=== PATIENT | female | born 1980 ===

== ENCOUNTER 2016-12-03 13:09 | Emergency (ER) | payer MEDICAID ==
[2016-12-03 13:09] VITALS: BMI 27.4
[2016-12-03 13:20] VITALS: BP 153/97; PULSE 102; RESP 20; TEMP 98.3; O2SAT 99
--- NOTE | 2016-12-03 13:39 | ED PDOC ---
HPI: Female Pain Time Seen by Provider: 12/03/16 13:28 Chief Complaint (Nursing): Female Genitourinary Chief Complaint (Provider): burn when urinating History Per: Patient History/Exam Limitations: no limitations Additional Complaint(s): patient with 4 days of burning when she urinating and slight pressure in the suprapubic region, (-) fever, radiation of pain to the back or back pain. (-) hx of kidney stone or kidney infections hx of recurrent UTI for many years last was 3 months ago, never needed admission , no urology evaluation. Past Medical History Reviewed: Historical Data, Nursing Documentation, Vital Signs Vital Signs: Last Vital Signs Temp 98.3 F 12/03/16 13:18 Pulse 102 H 12/03/16 13:18 Resp 20 12/03/16 13:18 BP 153/97 H 12/03/16 13:18 Pulse Ox 99 12/03/16 13:18 - Medical History PMH: Anemia, Back Problems, Diabetes (type I ), Fractures (right ankle), HTN, Hypothyroidism Denies: HIV, Chronic Kidney Disease - Surgical History Surgical History: Back Surgery, (3x) - Family History Family History: States: Unknown Family Hx - Living Arrangements Living Arrangements: With Family - Social History Current smoker - smoking cessation education provided: No Alcohol: Occasional Drugs: Denies - Home Medications Home Medications: Ambulatory Orders Medication Instructions Recorded Insulin Lispro [humALOG] 20 units SC BID 07/16/16 Levothyroxine Sodium [Synthroid] 1 tab PO QAM 07/16/16 MetFORMIN [glucoPHAGE] 1 tab PO TID 07/16/16 amLODIPine [Norvasc] 2 tab PO DAILY 07/16/16 Ciprofloxacin [Cipro] 500 mg PO BID #14 tab 08/17/16 Fluconazole [Diflucan] 150 mg PO ONCE #1 tab 08/31/16 Fluconazole [Diflucan] 150 mg PO ONCE #1 tab 09/30/16 Metronidazole [Metrogel] 60 gm VAG HS #1 packet 09/30/16 Famotidine [Pepcid] 20 mg PO DAILY #30 tab 10/27/16 Fluconazole [Diflucan] 150 mg PO ONCE #1 tab 10/27/16 Nitrofurantoin Macrocrystals 100 mg PO BID #14 cap 10/27/16 [Macrobid] Nitrofurantoin Macrocrystals 100 mg PO BID #14 cap 12/03/16 [Macrobid] Phenazopyridine [Phenazopyridine 200 mg PO TID #6 tab 12/03/16 HCl] - Allergies Allergies/Adverse Reactions: Allergies Allergy/AdvReac Type Severity Reaction Status Date / Time No Known Allergies Allergy Verified 12/03/16 13:17 Review of Systems ROS Statement: Except As Marked, All Systems Reviewed And Found Negative Constitutional: Negative for: Fever, Chills Cardiovascular: Negative for: Chest Pain Respiratory: Negative for: Shortness of Breath Gastrointestinal: Negative for: Nausea, Vomiting, Diarrhea Genitourinary Female: Positive for: Hematuria. Negative for: Vaginal Discharge , Vaginal Bleeding Skin: Negative for: Rash Neurological: Negative for: Headache, Dizziness Physical Exam - Reviewed Nursing Documentation Reviewed: Yes Vital Signs Reviewed: Yes - Physical Exam Appears: Positive for: Well, No Acute Distress Head Exam: Positive for: NORMAL INSPECTION Skin: Positive for: Normal Color Neck: Positive for: Normal, Painless ROM Cardiovascular/Chest: Positive for: Regular Rate, Rhythm Respiratory: Positive for: Normal Breath Sounds Gastrointestinal/Abdominal: Positive for: Normal Exam, Soft. Negative for: Tenderness Back: Positive for: Normal Inspection. Negative for: L CVA Tenderness, R CVA Tenderness, Vertebral Tenderness Extremity: Positive for: Normal ROM, Capillary Refill (normal ). Negative for: Tenderness Lymphatic: Positive for: Normal Exam Neurologic/Psych: Positive for: Alert, Oriented, Gait (normal ). Negative for: Motor/Sensory Deficits - ECG O2 Sat by Pulse Oximetry: 99 Pulse Ox Interpretation: Normal Medical Decision Making Medical Decision Makin36 y/o female with UTI symptoms - urinalysis no signs of kidney infection- no CVA tenderness, no fevers, no hx of stones chart reviewed from prior visit 10/2016 and 08/2016, similar symptoms at that time. UA reviewed from visits, UC multiple species normal US 10/2016 she appears well, no fever, her last checked her sugar 126 no CVA tenderness. discussed recurrent UTIs/UTI symptoms and need for urology without fail. discussed need to make sure she controls her sugar well which will decrease risk of recurrent infections. discussed UC was sent. she understands the need for follow up and will arrange it with PMD. Disposition - Clinical Impression Clinical Impression: Dysuria - Patient ED Disposition Is Patient to be Admitted: No Counseled Patient/Family Regarding: Studies Performed, Diagnosis, Need For Followup, Rx Given - Disposition Referrals: Yahir Zaragoza MD [Medical Doctor] - Disposition: Routine/Home Disposition Time: 14:22 Condition: STABLE Additional Instructions: follow up with urology and your primary care doctor for chronic/recurrent urinary complaints return for fevers, pain or any new concerns. Prescriptions: Nitrofurantoin Macrocrystals [Macrobid] 100 mg PO BID #14 cap Phenazopyridine [Phenazopyridine HCl] 200 mg PO TID #6 tab Instructions: Dysuria (ED)
[2016-12-03 14:04] LABS: RBC URINE 8 /hpf (0-3); URINE BACTERIA OCC (<OCC); URINE BILIRUBIN NEGATIVE (NEGATIVE); URINE BLOOD SMALL (NEGATIVE); URINE COLOR YELLOW (YELLOW); URINE GLUCOSE (UA) >=500 mg/dL (Normal); URINE KETONE NEGATIVE (NEGATIVE); URINE LEUKOCYTE ESTERASE NEG Leu/uL (Negative); URINE PROTEIN >=500 mg/dL (NEGATIVE); URINE UROBILINOGEN 0.2-1.0 mg/dL (0.2-1.0); WBC URINE 10 /hpf (0-5)
== END 2016-12-03 14:49 | disposition home or self-care (01) ==
LOC: H.ER 13:09
DX: R50.9 Fever, unspecified (principal)

== ENCOUNTER 2016-12-13 18:54 | Emergency (ER) | payer MEDICAID ==
[2016-12-13 18:54] VITALS: BMI 27.4
[2016-12-13 19:25] VITALS: BP 150/84; PULSE 112; RESP 18; TEMP 98.7; O2SAT 100
--- NOTE | 2016-12-13 20:08 | ED PDOC ---
HPI: Female Pain Time Seen by Provider: 12/13/16 19:45 Chief Complaint (Nursing): Female Genitourinary Chief Complaint (Provider): Dysuria History Per: Patient History/Exam Limitations: no limitations Onset/Duration Of Symptoms: Days (x10) Current Symptoms Are (Timing): Still Present Severity: Moderate Quality Of Discomfort: Burning, Other (itching) Associated Symptoms: denies: Fever, Other (no abd pain or vaginal discharge) Additional Complaint(s): Sara Lane is a 36 year old female, with a past medical history of anemia, HTN, and diabetes, presenting to the emergency department complaining of moderate dysuria x10 days. Pain is described as a burning/itching sensation that does not radiate elsewhere. The patient denies a fever, abdominal pain and vaginal discharge. She was seen ten days ago for the same issue and prescribed Macrobid, however, her symptoms are persistent despite taking antibiotics. PMD: non-specified Past Medical History Reviewed: Historical Data, Nursing Documentation, Vital Signs Vital Signs: Last Vital Signs Temp 98.7 F 12/13/16 19:22 Pulse 112 H 12/13/16 19:22 Resp 18 12/13/16 19:22 BP 150/84 12/13/16 19:22 Pulse Ox 100 12/13/16 19:22 - Medical History PMH: Anemia, Back Problems (herniated, bulging L4-L6 discs), Diabetes (type I), Fractures (right ankle), HTN, Hypothyroidism Denies: HIV, Chronic Kidney Disease - Surgical History Surgical History: Back Surgery, (x3) Other surgeries: right ankle repair w/ hardware - Family History Family History: States: Unknown Family Hx - Social History Current smoker - smoking cessation education provided: No Ex-Smoker (has not smoked in the last 12 months): No Alcohol: None Drugs: Denies - Home Medications Home Medications: Ambulatory Orders Medication Instructions Recorded Insulin Lispro [humALOG] 20 units SC BID 07/16/16 Levothyroxine Sodium [Synthroid] 1 tab PO QAM 07/16/16 MetFORMIN [glucoPHAGE] 1 tab PO TID 07/16/16 amLODIPine [Norvasc] 2 tab PO DAILY 07/16/16 Ciprofloxacin [Cipro] 500 mg PO BID #14 tab 08/17/16 Fluconazole [Diflucan] 150 mg PO ONCE #1 tab 08/31/16 Fluconazole [Diflucan] 150 mg PO ONCE #1 tab 09/30/16 Metronidazole [Metrogel] 60 gm VAG HS #1 packet 09/30/16 Famotidine [Pepcid] 20 mg PO DAILY #30 tab 10/27/16 Fluconazole [Diflucan] 150 mg PO ONCE #1 tab 10/27/16 Nitrofurantoin Macrocrystals 100 mg PO BID #14 cap 10/27/16 [Macrobid] Nitrofurantoin Macrocrystals 100 mg PO BID #14 cap 12/03/16 [Macrobid] Phenazopyridine [Phenazopyridine 200 mg PO TID #6 tab 12/03/16 HCl] Ciprofloxacin HCl [Cipro] 500 mg PO BID #20 tab 12/13/16 - Allergies Allergies/Adverse Reactions: Allergies Allergy/AdvReac Type Severity Reaction Status Date / Time No Known Allergies Allergy Verified 12/03/16 13:17 Review of Systems Constitutional: Negative for: Fever Gastrointestinal: Negative for: Abdominal Pain Genitourinary Female: Positive for: Dysuria. Negative for: Vaginal Discharge Physical Exam - Reviewed Nursing Documentation Reviewed: Yes Vital Signs Reviewed: Yes - Physical Exam Appears: Positive for: Non-toxic, No Acute Distress Head Exam: Positive for: ATRAUMATIC, NORMOCEPHALIC Skin: Positive for: Normal Color, Warm, Dry Gastrointestinal/Abdominal: Positive for: Normal Exam, Soft. Negative for: Tenderness Pelvic Exam: Positive for: External Exam Normal, No Masses, Other (non-tender). Negative for: Blood, Discharge Back: Positive for: Normal Inspection. Negative for: L CVA Tenderness, R CVA Tenderness Neurologic/Psych: Positive for: Alert, Oriented - ECG O2 Sat by Pulse Oximetry: 100 Pulse Ox Interpretation: Normal Medical Decision Making Medical Decision Makin:45 Initial Impression: dysuria Initial Plan: * Udip * Upreg * UA * Chlamydia/GC RNA * Urine Culture * Reevaluation Urine culture from previous emergency department reviewed, (+) Serratia marcescens. Resistant to Macrobid. Sensitive to Cipro, will provide prescription. 20:20 Upon provider reevaluation patient is medically stable and requires no further treatment in the ED at this time. Patient will be discharged home with Rx for Cipro. Counseling was provided and all questions were answered regarding diagnosis and need for follow up with the referred clinic. There is agreement to discharge plan. Return if symptoms persist or worsen. Clinical Impression: UTI Scribe Attestation: Documented by Siddharth Keyes training under Ariella Hurley, acting as a scribe for Earl lAlen MD. Provider Scribe Attestation: All medical record entries made by the Scribe were at my direction and personally dictated by me. I have reviewed the chart and agree that the record accurately reflects my personal performance of the history, physical exam, medical decision making, and the department course for this patient. I have also personally directed, reviewed, and agree with the discharge instructions and disposition. Disposition - Clinical Impression Clinical Impression: Urinary tract infection - Patient ED Disposition Is Patient to be Admitted: No Counseled Patient/Family Regarding: Studies Performed, Diagnosis, Need For Followup, Rx Given - Disposition Referrals: [facility] [Outside] Disposition: Routine/Home Disposition Time: 20:20 Condition: STABLE Prescriptions: Ciprofloxacin HCl [Cipro] 500 mg PO BID #20 tab Instructions: Urinary Tract Infection in Women (ED)
[2016-12-13 21:17] LABS: RBC URINE 5 /hpf (0-3); URINE BACTERIA OCC (<OCC); URINE BILIRUBIN NEGATIVE (NEGATIVE); URINE BLOOD SMALL (NEGATIVE); URINE COLOR STRAW (YELLOW); URINE GLUCOSE (UA) >=500 mg/dL (Normal); URINE KETONE NEGATIVE (NEGATIVE); URINE LEUKOCYTE ESTERASE NEG Leu/uL (Negative); URINE PROTEIN >=500 mg/dL (NEGATIVE); URINE UROBILINOGEN 0.2-1.0 mg/dL (0.2-1.0); WBC URINE 8 /hpf (0-5)
== END 2016-12-13 20:30 | disposition home or self-care (01) ==
LOC: H.ER 18:54
DX: N39.0 Urinary tract infection, site not specified (principal); R30.0 Dysuria; E03.9 Hypothyroidism, unspecified; I10 Essential (primary) hypertension; Z79.4 Long term (current) use of insulin; E11.9 Type 2 diabetes mellitus without complications

== ENCOUNTER 2016-12-24 23:06 | Emergency (ER) | payer MEDICAID ==
[2016-12-24 23:07] VITALS: BMI 27.4
[2016-12-24 23:16] VITALS: BP 151/101; PULSE 116; TEMP 97.8; O2SAT 98
--- NOTE | 2016-12-24 23:59 | ED PDOC ---
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 She also reports B/l leg swelling for the last 3 days and palpitation. She denies fever, cough, hemoptysis, pyrosis, N/V/D, abdominal pain , recent travel,trauma, Hx/o DVT, orthopnea, polyuria, polidypsia. Patient reports "she has endometriosis by MRI" and had a blood transfusion back in april last year and also reports she has been taking ciprofloxacin 500 mg bid x 7 days for UTI, last dose today. (Brayan Rodriguez) Past Medical History - Medical History PMH: Anemia, Back Problems (herniated, bulging L4-L6 discs), Diabetes (type I), Fractures (right ankle), HTN, Hypothyroidism Denies: HIV, Chronic Kidney Disease - Surgical History Surgical History: Back Surgery, (x3 and tubal ligation ) - Family History Family History: States: Unknown Family Hx - Social History Alcohol: None Drugs: Denies <Brayan Rodriguez - Last Filed: 12/25/16 03:28> <Jefferson Leroy - Last Filed: 12/25/16 05:47> Vital Signs: Last Vital Signs Temp 97.8 F 12/24/16 23:14 Pulse 116 H 12/24/16 23:14 Resp 19 12/25/16 01:40 BP 151/101 H 12/24/16 23:14 Pulse Ox 98 12/25/16 03:28 - Home Medications Home Medications: Ambulatory Orders Medication Instructions Recorded Insulin Lispro [humALOG] 20 units SC BID 07/16/16 Levothyroxine Sodium [Synthroid] 1 tab PO QAM 07/16/16 MetFORMIN [glucoPHAGE] 1 tab PO TID 07/16/16 amLODIPine [Norvasc] 2 tab PO DAILY 07/16/16 Ciprofloxacin [Cipro] 500 mg PO BID #14 tab 08/17/16 Fluconazole [Diflucan] 150 mg PO ONCE #1 tab 08/31/16 Fluconazole [Diflucan] 150 mg PO ONCE #1 tab 09/30/16 Metronidazole [Metrogel] 60 gm VAG HS #1 packet 09/30/16 Famotidine [Pepcid] 20 mg PO DAILY #30 tab 10/27/16 Fluconazole [Diflucan] 150 mg PO ONCE #1 tab 10/27/16 Nitrofurantoin Macrocrystals 100 mg PO BID #14 cap 10/27/16 [Macrobid] Nitrofurantoin Macrocrystals 100 mg PO BID #14 cap 12/03/16 [Macrobid] Phenazopyridine [Phenazopyridine 200 mg PO TID #6 tab 12/03/16 HCl] Ciprofloxacin HCl [Cipro] 500 mg PO BID #20 tab 12/13/16 - Allergies Allergies/Adverse Reactions: Allergies Allergy/AdvReac Type Severity Reaction Status Date / Time No Known Allergies Allergy Verified 12/03/16 13:17 Curb-65 Severity Score - CURB-65 Severity Score Confusion: No Bun >19mg/dl (>7mmol/L): No Respiratory Rate greater than/equal to 30: No Systolic BP <90 or Diastolic BP less than/equal 60mmHg: No Age >64: No Curb-65 Score: 0 Percentage 30-day mortality: 0.6% <Brayan Rodriguez - Last Filed: 12/25/16 03:28> Wells Criteria for PE - Wells Criteria for Pulmonary Embolism Heart Rate >100: Yes Immobilization at least 3 days;Surgery previous 4 weeks: No Previous, objectively diagnosed PE or DVT: No Hemoptysis: No Malignancy w/treatment within 6 months, or palliative: No Total Score: 1.5 <Brayan Rodriguez - Last Filed: 12/25/16 03:28> Review of Systems Cardiovascular: Positive for: Chest Pain, Palpitations, Edema Respiratory: Positive for: SOB with Exertion Gastrointestinal: Negative for: Nausea, Vomiting, Abdominal Pain Genitourinary Female: Negative for: Dysuria Neurological: Negative for: Confusion, Dizziness Psych: Negative for: Anxiety <Brayan Rodriguez - Last Filed: 12/25/16 03:28> Physical Exam - Physical Exam Appears: Positive for: Non-toxic, No Acute Distress Head Exam: Positive for: ATRAUMATIC, NORMOCEPHALIC Skin: Positive for: Normal Color Eye Exam: Positive for: Normal appearance Cardiovascular/Chest: Positive for: Tachycardia Respiratory: Positive for: Normal Breath Sounds. Negative for: Crackles, Rales , Rhonchi Gastrointestinal/Abdominal: Positive for: Normal Exam, Bowel Sounds, Soft. Negative for: Tenderness, Distended, Rebound Extremity: Positive for: Pedal Edema (B/L pedal edema 2+ 2/3 distal ) Neurologic/Psych: Positive for: Alert, Oriented <Brayan Rodriguez - Last Filed: 12/25/16 03:28> - Laboratory Results Result Diagrams: 12/24/16 00:44 12/24/16 00:44 - ECG O2 Sat by Pulse Oximetry: 98 <Brayan Rodriguez - Last Filed: 12/25/16 03:28> - Laboratory Results Result Diagrams: 12/24/16 00:44 12/24/16 00:44 <Jefferson Leroy Y - Last Filed: 12/25/16 05:47> Medical Decision Making <Brayan Rodriguez - Last Filed: 12/25/16 03:28> <Jefferson Leroy - Last Filed: 12/25/16 05:47> Medical Decision Makin yo , f, PMhx/o type 1 DM, HTN, Hypothyroidism, Anemia, presents to ER c/o SOB on exertion started 7 days ago, associated with chest pain, pedal edema , palpitation Impression SOB. To r/o CHF, Anemia, PE. Plan CBC, CMP CXR EKg troponin D dimer, pro BMP 1: 15am Hgb: 7,5 Bun/Cr 33/1.9 Glucose: 507 mg/dl troponin neg ProBNP 2910 Patient was informed about abnormal lab results and need for admission but she reports that she has to work tomorrow and will come back tomorrow night. will sign AMA (Brayan Rodriguez) Disposition - Disposition Disposition Time: 02:52 <Brayan Rodriguez - Last Filed: 12/25/16 03:28> <Jefferson Leroy - Last Filed: 12/25/16 05:47> - Clinical Impression Clinical Impression: Chronic congestive heart failure, Hyperglycemia, Left against medical advice - Disposition Referrals: Lenny Locke MD [Primary Care Provider] - Condition: SERIOUS Additional Instructions: follow up with your primary doctor as soon as possible. return to the ED with any worsening or concerning symptoms immediately. Instructions: Heart Failure (ED), Against Medical Advice (ED), Diabetic Hyperglycemia (ED)
[2016-12-25 00:47] LABS: BASO # 0.1 K/uL (0.0-0.2); BASO % 1.4 % (0.0-2.0); EOS # 0.2 K/uL (0.0-0.7); EOS % 2.3 % (0.0-4.0); HEMATOCRIT 24.3 % (34.0-47.0); LYMPH # 2.7 K/uL (1.0-4.3); LYMPH % 29.2 % (20.0-40.0); MEAN CELL VOLUME 72.2 fl (81.0-99.0); MEAN CORPUSCULAR HEMOGLOBIN 22.2 pg (27.0-31.0); MEAN CORPUSCULAR HGB CONC 30.7 g/dL (33.0-37.0); MEAN PLATELET VOLUME 7.7 fl (7.2-11.7); MONO # 0.4 K/uL (0.0-0.8); MONO % 4.6 % (0.0-10.0); NEUT # 5.8 K/uL (1.8-7.0); NEUT % 62.5 % (50.0-75.0); RED CELL DISTRIBUTION WIDTH 15.3 % (11.5-14.5); WHITE BLOOD COUNT 9.2 K/uL (4.8-10.8)
[2016-12-25 00:58] LABS: ALB/GLOB RATIO 0.7 (1.0-2.1); ALKALINE PHOSPHATASE 160 U/L (38-126); ALT/SGPT 16 U/L (9-52); AST/SGOT 20 U/L (14-36); BILIRUBIN,TOTAL 0.2 mg/dl (0.2-1.3); BLOOD UREA NITROGEN 33 mg/dl (7-17); CALCIUM 8.4 mg/dL (8.4-10.2); CARBON DIOXIDE 23 mmol/L (22-30); CHLORIDE 110 mmol/L (98-107); GFR AFRICAN-AMERICAN 37; POTASSIUM 4.2 MMOL/L (3.6-5.0); SODIUM 141 mmol/l (132-148)
[2016-12-25 01:00] LABS: GLUCOSE,RANDOM 507 mg/dL (65-105)
[2016-12-25] MEDS ORDERED: Sodium Chloride 0.9% 1,000 ML IV STA ×2 (01:01→02:17)
[2016-12-25] MEDS ORDERED: Insulin Regular 100 units/ml SC STA (01:02)
[2016-12-25] MEDS ORDERED: Insulin Regular 100 units/ml ONE (01:06)
[2016-12-25 01:41] VITALS: RESP 19
--- NOTE | 2016-12-26 10:00 | RAD ---
HISTORY: cp COMPARISON: No prior. TECHNIQUE: Chest PA and lateral FINDINGS: LUNGS: Bilateral atelectasis and/or infiltrates. In addition, there are increased/ coarsened interstitial markings ; rule out underlying interstitial infiltrate component however concomitant underlying sequela of reactive/ inflammatory airway disease and or viral illness not excluded PLEURA: No significant pleural effusion identified. No pneumothorax apparent. CARDIOVASCULAR: Normal. OSSEOUS STRUCTURES: No significant abnormalities. VISUALIZED UPPER ABDOMEN: Normal. OTHER FINDINGS: None. IMPRESSION: Bilateral atelectasis and/or infiltrates. In addition, there are increased/ coarsened interstitial markings ; rule out underlying interstitial infiltrate component however concomitant underlying sequela of reactive/ inflammatory airway disease and or viral illness not excluded No that this report was placed in PA review folder followup
== END 2016-12-25 02:51 | disposition left against medical advice (07) ==
LOC: H.ER 23:06
DX: I50.9 Heart failure, unspecified (principal); J44.9 Chronic obstructive pulmonary disease, unspecified; E03.9 Hypothyroidism, unspecified; E11.65 Type 2 diabetes mellitus with hyperglycemia; I10 Essential (primary) hypertension; Z79.4 Long term (current) use of insulin

== ENCOUNTER 2017-01-02 18:07 | Inpatient (IN) | payer MEDICAID ==
[2017-01-02 18:07] VITALS: BMI 27.4
[2017-01-02] MEDS ORDERED: Sodium Chloride 0.9% 1,000 ML IV STA (18:44)
[2017-01-02 19:17] LABS: BASO # 0.1 K/uL (0.0-0.2); BASO % 1.4 % (0.0-2.0); EOS # 0.2 K/uL (0.0-0.7); EOS % 2.6 % (0.0-4.0); HEMATOCRIT 21.8 % (34.0-47.0); LYMPH # 1.7 K/uL (1.0-4.3); LYMPH % 20.7 % (20.0-40.0); MEAN CORPUSCULAR HEMOGLOBIN 22.2 pg (27.0-31.0); MEAN CORPUSCULAR HGB CONC 30.8 g/dL (33.0-37.0); MEAN PLATELET VOLUME 7.5 fl (7.2-11.7); MONO # 0.5 K/uL (0.0-0.8); MONO % 5.7 % (0.0-10.0); NEUT # 5.8 K/uL (1.8-7.0); NEUT % 69.6 % (50.0-75.0); RED CELL DISTRIBUTION WIDTH 15.4 % (11.5-14.5); WHITE BLOOD COUNT 8.3 K/uL (4.8-10.8)
[2017-01-02 19:28] LABS: ALKALINE PHOSPHATASE 146 U/L (38-126); ALT/SGPT 23 U/L (9-52); AST/SGOT 17 U/L (14-36); BILIRUBIN,TOTAL 0.3 mg/dl (0.2-1.3); BLOOD UREA NITROGEN 23 mg/dl (7-17); CALCIUM 8.6 mg/dL (8.4-10.2); CARBON DIOXIDE 21 mmol/L (22-30); CHLORIDE 102 mmol/L (98-107); GFR AFRICAN-AMERICAN 42; POTASSIUM 4.1 MMOL/L (3.6-5.0); SODIUM 137 mmol/l (132-148); TOTAL PROTEIN 6.3 G/DL (6.3-8.2)
[2017-01-02 19:31] LABS: ALB/GLOB RATIO 0.8 (1.0-2.1)
[2017-01-02 19:35] LABS: GLUCOSE,RANDOM 434 mg/dL (65-105)
[2017-01-02 19:36] LABS: PARTIAL THROMBOPLASTIN TIME 22.3 SECONDS (23.3-32.5)
[2017-01-02 19:58] LABS: THYROID STIMULATING HORMONE 0.27 mIU/ML (0.46-4.68)
--- NOTE | 2017-01-02 20:18 | ED PDOC ---
HPI: Chest Pain Time Seen by Provider: 01/02/17 18:25 Chief Complaint (Nursing): Chest Pain Chief Complaint (Provider): Chest Pain History Per: Patient History/Exam Limitations: no limitations Onset/Duration Of Symptoms: Days (x1) Current Symptoms Are (Timing): Gone Now (only present w/exertion) Associated Symptoms: Dyspnea (exertional only) Additional Complaint(s): Sara Lane is a 36 year old female, with a past medical history inclusive of HTN, type I diabetes and anemia, who presents to the ED on 01/02/17, with complaints of chest pain and exertional dyspnea, experienced x1 day and over the past couple of weeks respectively. Pain, localized midsternally and described as burning, is also only present with exertion and relieved with rest. Patient states that she was evaluated within the ED on 12/24/16 for similar complaints, at which time it was recommended that she be admitted for further treatment of kidney problems and anemia. Patient had signed herself out AMA as she had work the next day, but had followed up with her PMD as instructed upon disposition with subsequent referral to a staff developer. Patient was evaluated by this neprhologist yesterday, who had recommended that she come to the ED for further treatment. Though she is experiencing a minimal cough, she denies fever or palpitations. PMD: [facility] Dental Hygiene Professor: Dr. Dejesus Past Medical History Reviewed: Historical Data, Nursing Documentation, Vital Signs Vital Signs: Last Vital Signs Temp 98.5 F 01/04/17 12:58 Pulse 89 01/04/17 12:58 Resp 20 01/04/17 12:58 BP 158/85 H 01/04/17 12:58 Pulse Ox 98 01/04/17 12:58 - Medical History PMH: Anemia, Back Problems (herniated, bulging L4-L6 discs), Diabetes (type I), Fractures (right ankle), HTN, Hypothyroidism Denies: HIV, Chronic Kidney Disease - Surgical History Surgical History: Back Surgery, (x3 and tubal ligation ) Other surgeries: ankle surgery (plate/screw placement s/p fx) - Family History Family History: States: Unknown Family Hx - Home Medications Home Medications: Ambulatory Orders Medication Instructions Recorded Atorvastatin [Lipitor] 80 mg PO HS 01/02/17 Ergocalciferol (Vitamin D2) 50,000 unit PO WE 01/02/17 [Vitamin D2] Insulin Glargine, Recombina 17 unit SC HS 01/02/17 [Lantus] Insulin Lispro [humALOG] 20 unit SC ACTID 01/02/17 Levothyroxine Sodium [Synthroid] 325 mcg PO DAILY 01/02/17 MetFORMIN [glucoPHAGE] 1,000 mg PO BID 01/02/17 Metoprolol Succinate 100 mg PO DAILY 01/02/17 amLODIPine [Norvasc] 10 mg PO DAILY 01/02/17 hydroCHLOROthiazide [Hydrodiuril] 25 mg PO DAILY 01/02/17 Ferrous Sulfate 325 mg PO BID #30 tablet 01/04/17 Furosemide [Lasix] 40 mg PO DAILY #30 tab 01/04/17 GlipiZIDE SR [Glucotrol XL] 10 mg PO BRK #30 tab 01/04/17 Lisinopril [Zestril] 40 mg PO DAILY #30 tab 01/04/17 Miconazole 2% Vaginal [Monistat 7 1 applic VAG HS #1 tube 01/04/17 Vaginal Cream] Pantoprazole [Protonix EC Tab] 40 mg PO DAILY #14 ect 01/04/17 - Allergies Allergies/Adverse Reactions: Allergies Allergy/AdvReac Type Severity Reaction Status Date / Time No Known Allergies Allergy Verified 01/02/17 18:34 Review of Systems ROS Statement: Except As Marked, All Systems Reviewed And Found Negative Constitutional: Negative for: Fever Cardiovascular: Positive for: Chest Pain (exertional, midsternal burning). Negative for: Palpitations Respiratory: Positive for: SOB with Exertion Physical Exam - Reviewed Nursing Documentation Reviewed: Yes Vital Signs Reviewed: Yes - Physical Exam Appears: Positive for: Non-toxic, No Acute Distress Head Exam: Positive for: ATRAUMATIC, NORMOCEPHALIC Skin: Positive for: Warm, Dry, Pallor Eye Exam: Positive for: Normal appearance, PERRL ENT: Positive for: Normal ENT Inspection Cardiovascular/Chest: Positive for: Tachycardia (regular rhythm). Negative for : Edema, Murmur Respiratory: Positive for: Normal Breath Sounds. Negative for: Respiratory Distress Gastrointestinal/Abdominal: Positive for: Normal Exam, Soft. Negative for: Tenderness Back: Positive for: Normal Inspection Extremity: Positive for: Normal ROM (moving all extremities well). Negative for : Swelling Neurologic/Psych: Positive for: Alert, Oriented - Laboratory Results Result Diagrams: 01/04/17 04:10 01/04/17 08:00 - ECG O2 Sat by Pulse Oximetry: 100 (RA) Pulse Ox Interpretation: Normal Medical Decision Making Medical Decision Makin:25 Initial Impression: anemia, kidney failure, chest pain Initial Plan: * ABO/Rh Type * Blood Type/Screen * CXR * Labs * ProBNP * TSH * D-Dimer * PTT * PT * Glucose/Blood/POC * Upreg * Udip * Urinalysis * IV NS 1000ml at 1000mls/hr * Reevaluation 19:37 Labs reviewed, patient is anemic with a hemoglobin level of 6.7. Patient will be admitted for transfusion and has given written consent. Ordered Crossmatch and transfusion of 2 units. 20:23 Patient's blood pressure is notably elevated within the ED, admits to not taking blood pressure medications today. Ordered administration of metoprolol tartrate 100mg PO as well as norvasc 10mg PO. 20:48 Blood glucose is 434, ordered administration of Insulin HR 8 units IV. 21:00 Labs also demonstrate elevated D-Dimer. Unable to order CT w/contrast secondary to patient's elevated creatinine (1.7), will order Duplex LE Vein bilat as well as VQ scan for morning. Will page Dr. Salinas (Medical Service) for admission. 21:[address] Salinas, who will obtain both hemonc and nephrology consults. He has been notified of ordered VQ scan and recommends that patient be given Lasix. Patient will be admitted under his service to Telemetry. Plan has been discussed with patient, who is in agreement. 21:30 Patient has refused rectal exam. She does report currently being on her menses and that, though she usually bleeds heavily on the 2nd day of her cycle (using an estimated 6 pads), she had not been menstruating the last time she required transfusion. Scribe Attestation: Documented by Ariella Hurley, acting as a scribe for Esthela Arshad MD. Provider Scribe Attestation: All medical record entries made by the Scribe were at my direction and personally dictated by me. I have reviewed the chart and agree that the record accurately reflects my personal performance of the history, physical exam, medical decision making, and the department course for this patient. I have also personally directed, reviewed, and agree with the discharge instructions and disposition. Disposition - Clinical Impression Clinical Impression: Symptomatic anemia, Chest pain, Renal insufficiency, Uncontrolled diabetes mellitus - Patient ED Disposition Is Patient to be Admitted: Yes - Disposition Disposition Time: 21:18 Condition: STABLE - Pt Status Changed To: Hospital Disposition Of: Inpatient - Admit Certification Admit to Inpatient:: After my assessment, the patient will require hospitalization for at least two midnights. This is because of the severity of symptoms shown, intensity of services needed, and/or the medical risk in this patient being treated as an outpatient. - POA Present On Arrival: Poor Glycemic Control
[2017-01-02] MEDS ORDERED: Insulin Regular 100 units/ml ONE (20:45)
[2017-01-02] MEDS ORDERED: Insulin Regular 100 units/ml IV STA (20:48)
[2017-01-02 21:15] LABS: RBC URINE 73 /hpf (0-3); URINE BACTERIA RARE (<OCC); URINE BILIRUBIN NEGATIVE (NEGATIVE); URINE BLOOD LARGE (NEGATIVE); URINE COLOR YELLOW (YELLOW); URINE GLUCOSE (UA) >=500 mg/dL (Normal); URINE KETONE NEGATIVE (NEGATIVE); URINE LEUKOCYTE ESTERASE NEG Leu/uL (Negative); URINE PROTEIN >=500 mg/dL (NEGATIVE); URINE UROBILINOGEN 0.2-1.0 mg/dL (0.2-1.0); WBC URINE 3 /hpf (0-5)
[2017-01-02 22:13] LABS: IRON 17 ug/dL (37-170)
[2017-01-03] MEDS ORDERED: Ergocalciferol 50,000 Intl Units Cap PO SCH ×2 (00:15→09:00)
[2017-01-03] MEDS: Insulin Detemir 100 Units/ml Inj SC SCH ×2 (00:39→22:09)
[2017-01-03] MEDS ORDERED: Pneumococcal 23-Valent Vaccine IM ONE (06:00)
[2017-01-03] MEDS: Levothyroxine 150 MCG TAB PO SCH (06:17)
[2017-01-03] MEDS ORDERED: Levothyroxine 100 MCG TAB PO SCH (06:30)
[2017-01-03] MEDS ORDERED: Levothyroxine 25 MCG TAB PO SCH (06:30)
[2017-01-03 07:50] LABS: ALB/GLOB RATIO 0.7 (1.0-2.1); BILIRUBIN,TOTAL 0.3 mg/dl (0.2-1.3); CALCIUM 8.4 mg/dL (8.4-10.2); POTASSIUM 3.6 MMOL/L (3.6-5.0); TOTAL PROTEIN 5.9 G/DL (6.3-8.2)
--- NOTE | 2017-01-03 08:26 | US ---
PROCEDURE: Bilateral lower extremity venous duplex Doppler. HISTORY: SOB COMPARISON: None available. TECHNIQUE: Bilateral common femoral, superficial femoral, popliteal and posterior tibial veins were evaluated. Flow was assessed with color Doppler, compressibility, assessment of phasic flow and augmentation response. FINDINGS: COMMON FEMORAL VEIN: Right CFV: Unremarkable. Left CFV: Unremarkable. SUPERFICIAL FEMORAL VEIN: Right SFV: Unremarkable. Left SFV: Unremarkable. POPLITEAL VEIN: Right Popliteal: Unremarkable. Left Popliteal: Unremarkable. POSTERIOR TIBIAL VEIN: Right PTV: Unremarkable. Left PTV: Unremarkable. OTHER FINDINGS: None. IMPRESSION: No evidence of deep venous thrombosis. Concordant results (preliminary interpretation) provided by [facility]. Procedure Completed: 20:10. Preliminary ([facility]) Report: Dictated and Authenticated: 23:30. Final Interpretation: 08:25. January 03, 2017.
[2017-01-03 08:33] LABS: HEMATOCRIT 26.3 % (34.0-47.0); MEAN CELL VOLUME 73.6 fl (81.0-99.0); MEAN CORPUSCULAR HEMOGLOBIN 24.6 pg (27.0-31.0); MEAN CORPUSCULAR HGB CONC 33.4 g/dL (33.0-37.0); RED CELL DISTRIBUTION WIDTH 17.3 % (11.5-14.5); WHITE BLOOD COUNT 8.4 K/uL (4.8-10.8)
[2017-01-03] MEDS: Insulin Lispro (humaLOG) 100 Units/ml Inj SC SCH ×3 (08:51→16:36)
--- NOTE | 2017-01-03 08:51 | RAD ---
HISTORY: Chest pain. COMPARISON: 12/25/2016. Two-view chest 05/05/2008 two view chest. FINDINGS: LUNGS: Persistent consolidative changes of both lung bases stable compared to the most recent two-view chest. PLEURA: Trace bilateral pleural effusions remain. CARDIOVASCULAR: Normal. OSSEOUS STRUCTURES: No significant abnormalities. VISUALIZED UPPER ABDOMEN: Normal. OTHER FINDINGS: None. IMPRESSION: Stable lower lobe infiltrates.
[2017-01-03] MEDS: Metoprolol Succinate 100 mg XL Tab PO SCH (08:52)
[2017-01-03] MEDS: Pantoprazole 40 mg EC Tab PO SCH (08:53)
[2017-01-03] MEDS: GlipiZIDE 10 mg SR Tab PO SCH (08:54)
[2017-01-03] MEDS ORDERED: LEVOTHYROXINE SODIUM 325 MCG PO SCH (09:00)
--- NOTE | 2017-01-03 10:19 | CP.PCM.HP ---
History of Present Illness - History of Present Illness History of Present Illness: 36F admitted overnight and seen at the bedside this morning. Patient reports worsening SOB with non-radiating chest pain not associated with diaphoresis or nausea, but experiencing fatigue. This is not associated with recent travel, leg swelling, or control. She has been transfused one other time, last year. Patient reports that after last her periods are much heavier lasting 7 days and requiring 6-8 pads/day. The bleeding is associated with large clots. She does not follow up with [employer] and denies further work up by her PMD. LMP- 12/30/2016 (still menstruating) Of note, she was seen in the ED 12/24/16 and H/H at that time was 7.5/24.3 and hyperglycemic, but signed out AMA as she was going to be admitted. PMD: Willy PMH: DM, HTN, Hypothyroid, Renal failure, "Endometriosis by MRI"?; denies migraines/smoking/DVT/PE PSH: C-sxn x3, RIGHT ankle Smoke: Never ALL: NKDA Medications: See Med Rec ED COURSE EKG- ST, non-specific T wave abnormality CXR- stable lower lobe infiltrates D-dimer: elevated b/l lower extremity venous duplex: Neg for DVT H/H: 6.7/21.8, MCV-72 UA: Protein >500, RBCs+ (menstruating) Consultations: Dr Connelly (Heme/Onc), Dr Renae (Nephrology) Present on Admission - Present on Admission Any Indicators Present on Admission: Yes History of DVT/PE: No History of Uncontrolled Diabetes: Yes Review of Systems - Review of Systems Review of Systems: As per HPI Past Patient History - Past Medical History & Family History Past Medical History?: Yes - Past Social History Smoking Status: Never Smoked - CARDIAC Hx Cardiac Disorders: Yes - PULMONARY Hx Respiratory Disorders: No - NEUROLOGICAL Hx Neurological Disorder: No - HEENT Hx HEENT Problems: No - RENAL Hx Chronic Kidney Disease: No - ENDOCRINE/METABOLIC Hx Endocrine Disorders: Yes - HEMATOLOGICAL/ONCOLOGICAL Hx Blood Disorders: Yes - INTEGUMENTARY Hx Dermatological Problems: No - MUSCULOSKELETAL/RHEUMATOLOGICAL Hx Falls: No - GASTROINTESTINAL Hx Gastrointestinal Disorders: No - GENITOURINARY/GYNECOLOGICAL Hx Genitourinary Disorders: No - PSYCHIATRIC Hx Substance Use: No - SURGICAL HISTORY Hx Surgeries: Yes - ANESTHESIA Hx Anesthesia: Yes Hx Anesthesia Reactions: No Meds Allergies/Adverse Reactions: Allergies Allergy/AdvReac Type Severity Reaction Status Date / Time No Known Allergies Allergy Verified 01/02/17 18:34 Physical Exam - Constitutional Appears: Well, Non-toxic, No Acute Distress - Head Exam Head Exam: ATRAUMATIC, NORMAL INSPECTION - Eye Exam Eye Exam: EOMI, Normal appearance - ENT Exam ENT Exam: Mucous Membranes Moist, Normal Exam - Neck Exam Neck exam: Positive for: Normal Inspection. Negative for: Lymphadenopathy - Respiratory Exam Respiratory Exam: Clear to Auscultation Bilateral, NORMAL BREATHING PATTERN. absent: Rales, Wheezes - Cardiovascular Exam Cardiovascular Exam: REGULAR RHYTHM. absent: JVD - GI/Abdominal Exam GI & Abdominal Exam: Normal Bowel Sounds, Soft. absent: Tenderness - Extremities Exam Extremities exam: Positive for: normal capillary refill, normal inspection, pedal pulses present - Neurological Exam Neurological exam: Alert, Oriented x3 - Psychiatric Exam Psychiatric exam: Normal Affect, Normal Mood - Skin Skin Exam: Normal Color, Warm Results - Vital Signs Recent Vital Signs: Last Vital Signs Temp 36.9 C 01/03/17 08:30 Pulse 93 H 01/03/17 08:54 Resp 20 01/03/17 08:30 BP 161/91 H 01/03/17 08:54 Pulse Ox 98 01/03/17 08:30 - Labs Result Diagrams: 01/03/17 08:21 01/03/17 07:35 Labs: Laboratory Results - last 24 hr 01/02/17 01/02/17 01/03/17 21:50 23:04 00:43 WBC RBC Hgb Hct MCV MCH MCHC RDW Plt Count Retic Count 2.1 H Sodium Potassium Chloride Carbon Dioxide Anion Gap BUN Creatinine Est GFR ( Amer) Est GFR (Non-Af Amer) POC Glucose (mg/dL) 262 H 269 H Random Glucose Calcium Iron 17 L TIBC 242 L % Saturation 7 L Ferritin Total Bilirubin AST ALT Alkaline Phosphatase Total Protein Albumin Globulin Albumin/Globulin Ratio Vitamin B12 412 01/03/17 01/03/17 01/03/17 04:45 05:07 07:35 WBC RBC Hgb Hct MCV MCH MCHC RDW Plt Count Retic Count Sodium 142 Potassium 3.6 Chloride 110 H Carbon Dioxide 21 L Anion Gap 15 BUN 23 H Creatinine 1.6 H Est GFR ( Amer) 45 Est GFR (Non-Af Amer) 37 POC Glucose (mg/dL) 238 H Random Glucose 227 H Calcium 8.4 Iron TIBC % Saturation Ferritin 11.7 Total Bilirubin 0.3 AST 13 L D ALT 23 Alkaline Phosphatase 123 Total Protein 5.9 L Albumin 2.4 L Globulin 3.4 Albumin/Globulin Ratio 0.7 L Vitamin B12 01/03/17 08:21 WBC 8.4 RBC 3.58 L Hgb 8.8 L D Hct 26.3 L MCV 73.6 L MCH 24.6 L MCHC 33.4 RDW 17.3 H Plt Count 431 H Retic Count Sodium Potassium Chloride Carbon Dioxide Anion Gap BUN Creatinine Est GFR ( Amer) Est GFR (Non-Af Amer) POC Glucose (mg/dL) Random Glucose Calcium Iron TIBC % Saturation Ferritin Total Bilirubin AST ALT Alkaline Phosphatase Total Protein Albumin Globulin Albumin/Globulin Ratio Vitamin B12 Assessment & Plan (1) Anemia due to chronic blood loss Assessment and Plan: Patient with chronic blood loss anemia secondary to what appears to be DUB further evidenced by iron deficiency with retic count-2.1. She received 2UPRBC with appropriate response as repeat H/H: 8.8/26.3 and clinically improved. - Heme/Onc consult (Dr Connelly) appreciated: Venofer 200mg, IV, Daily - [employer] Consult (Dr Hall) appreciated: PENDING - Repeat CBC @ 1400, will consider transfusing another unit - Pelvic ultrasound Status: Acute (2) DVT prophylaxis Assessment and Plan: - SCDs b/l, continuous Status: Acute (3) Renal insufficiency Assessment and Plan: Patient has presented to this facility since 04/2016 with renal insufficiency. Etiology unclear, but given uncontrolled state of thyroid condition/diabetes/ HTN this is concerning for vasculitis vs. autoimmune. - Nephrology Consult (Dr Renae) appreciated: will f/u tests ordered (labs , renal ultrasound) Status: Chronic (4) Diabetes Assessment and Plan: Uncontrolled. - c/w Glipizide 10mg, PO, Daily - Metformin 1000mg, PO, BIDWM - Levemir 17U, SC, HS - SSI, SC, ACTID - Accu-checks - Hypoglycemic Bundle - Atorvastatin 80mg, PO, HS Status: Chronic (5) Hypertension Assessment and Plan: Not well-controlled may be secondary to TSH: 0.27 - Lisinopril 40mg, PO, Daily - Lopressor 100mg, PO, Daily - Norvasc 10mg, PO, Daily - Lasix 20mg, PO, Daily - HCTZ 25mg, PO, Daily - Monitor Status: Chronic (6) Hypothyroid Assessment and Plan: Uncontrolled, TSH: 0.27 on 325mcg, PO, Daily - Decrease Synthroid to 300mcg after speaking with Pharmacy - T4 (total/free) and T3 in AM - Will need f/u in 6-8wks for repeat TSH Status: Chronic
--- NOTE | 2017-01-03 11:37 | CARD ---
APPROVED REPORT EKG Measurement Heart [id number] MI [id number] <Conclusion> Sinus tachycardia Nonspecific T wave abnormality Abnormal ECG
[2017-01-03] MEDS ORDERED: Glucagon Recombinant 1 mg Inj IM PRN (12:11)
[2017-01-03] MEDS ORDERED: Dextrose 50% SYRINGE Inj (50 ml) IV PRN (12:11)
--- NOTE | 2017-01-03 12:14 | US ---
HISTORY: Anemia. LMP 12/30/2016. COMPARISON: 04/26/2016. TECHNIQUE: Transabdominal only. Real-time technique with 2D, duplex and color Doppler FINDINGS: UTERUS: Measures 7 x 13.6 cm. Heterogeneous echo characteristics, mildly enlarged without interval change. No fibroid or other mass lesion seen. ENDOMETRIUM: Measures 3.5 mm in diameter. No ultrasound findings to suggest gestational sac, fluid, debris, mass or polyp or other pathologic process within the endometrium. CERVIX: No cervical abnormality identified. RIGHT OVARY: Measures 2.8 x 1.8 cm. No solid mass. Normal flow. LEFT OVARY: Measures 2.2 x 2 point cm. No solid mass. Normal flow. FREE FLUID: No significant free fluid noted. OTHER FINDINGS: None. IMPRESSION: Mildly enlarged, heterogeneous uterus unchanged compared to the prior study. No acute findings related to/accounting for the clinical presentation.
--- NOTE | 2017-01-03 13:09 | US ---
PROCEDURE: Ultrasound of the Kidneys HISTORY: htn,dm, anemia, ckd, proteinuria, for kidney size COMPARISON: Limited abdominal ultrasound performed 10/27/16 TECHNIQUE: Sonogram of the kidneys. FINDINGS: RIGHT KIDNEY: Measures: 10.6 x 5.5 x 4.3 cm. Echogenic renal parenchyma. No obstructing calculus or hydronephrosis identified. LEFT KIDNEY: Measures: 10.5 x 5.8 x 5.8 cm. Echogenic renal parenchyma. Question punctate nonobstructing left upper pole renal calculus. No obstructing calculus or hydronephrosis identified. OTHER FINDINGS: The patient voided prior to study which precludes adequate evaluation of the urinary bladder. IMPRESSION: No obstructing calculus or hydronephrosis identified. Echogenic renal parenchyma may be seen in the setting of medical renal disease. Question presence of punctate nonobstructing left upper pole renal calculus.
[2017-01-03 13:16] LABS: MEAN CELL VOLUME 75.1 fl (81.0-99.0); MEAN CORPUSCULAR HEMOGLOBIN 23.6 pg (27.0-31.0); MEAN CORPUSCULAR HGB CONC 31.4 g/dL (33.0-37.0); RED CELL DISTRIBUTION WIDTH 16.9 % (11.5-14.5); WHITE BLOOD COUNT 9.9 K/uL (4.8-10.8)
--- NOTE | 2017-01-03 13:16 | NM ---
COMPARISON: January 03, 2017. Two-view chest. Summary of findings on the comparison examination: Lower lobe infiltrates. January 02, 2017. Bilateral lower extremity duplex venous sonography. Summary of findings on the comparison examination: No evidence of deep vein thrombosis. TECHNIQUE: 40.0 mCi technetium 99-m DTPA aerosol. 5.0 mCI technetium 99-m MAA administered intravenously. FINDINGS: VENTILATION COMPONENT: Mildly asymmetric ventilation, retention of radionuclide in the tracheobronchial tree. Ingested radionuclide in the stomach. PERFUSION COMPONENT: Heterogeneous distribution of radionuclide. No geographic, segmental, lobar abnormalities apparent on the present examination. IMPRESSION: Low probability ventilation perfusion scan for pulmonary embolism.
--- NOTE | 2017-01-03 14:00 | CP.PCM.CON ---
Addendum entered and electronically signed by Raoul Luna MD 01/04/17 07: 06: Correction to above note: Assessment : Adenomyosis The patients presentation and symptoms are consistent with a diagnosis of adenomyosis. Original Note: <Raoul Luna - Last Filed: 01/03/17 18:18> History of Present Illness - History of Present Illness History of Present Illness: BUSINESS SERVICES REPRESENTATIVE CONSULT NOTE 36 y/o f admitted for severe anemia, presented with complaints of fatigue, headache, shortness of breath and palpitations. She reports LMP 12/30/16, currently still menstruating. She states periods have been regular, but heavy for the past 8 years, requiring ~7-8 pads on the second day, with blood clots. Menses lasts about 7 days and is painful. States she had and MRI at [place], ~2011. As per patient, report stated she had endometriosis. Reports hx of blood transfusion x1 prior to right ankle surgery. She does not have an JEWEL BEARING FACER. Her last pap smear was approx. 6 years ago. Patient has hx of hypothyroidism, found to be uncontrolled on this admission. ROS: denies h/a dizziness, chest pain, palpitation, dyspnea, n/v/d/c, abdominal pain, pedal edema. PMH: hypothyroidism, DM, HTN, renal insufficiency Medications: reviewed Allergies: NKDA Surgical: right ankle, x 3 OBhx: 3 Para 3 via , 1 still Social: denies smoking, etoh use. Past Patient History - Past Medical History & Family History Past Medical History?: Yes - Past Social History Smoking Status: Never Smoked - CARDIAC Hx Cardiac Disorders: Yes - PULMONARY Hx Respiratory Disorders: No - NEUROLOGICAL Hx Neurological Disorder: No - HEENT Hx HEENT Problems: No - RENAL Hx Chronic Kidney Disease: No - ENDOCRINE/METABOLIC Hx Endocrine Disorders: Yes - HEMATOLOGICAL/ONCOLOGICAL Hx Blood Disorders: Yes - INTEGUMENTARY Hx Dermatological Problems: No - MUSCULOSKELETAL/RHEUMATOLOGICAL Hx Falls: No - GASTROINTESTINAL Hx Gastrointestinal Disorders: No - GENITOURINARY/GYNECOLOGICAL Hx Genitourinary Disorders: No - PSYCHIATRIC Hx Substance Use: No - SURGICAL HISTORY Hx Surgeries: Yes - ANESTHESIA Hx Anesthesia: Yes Hx Anesthesia Reactions: No Meds Allergies/Adverse Reactions: Allergies Allergy/AdvReac Type Severity Reaction Status Date / Time No Known Allergies Allergy Verified 01/02/17 18:34 - Medications Medications: Current Medications Amlodipine Besylate (Norvasc) 10 mg PO DAILY [facility] Last Admin: 01/03/17 08:53 Dose: 10 mg Atorvastatin Calcium (Lipitor) 80 mg PO HS [facility] Dextrose (Glutose 15) 0 gm PO ONCE PRN; Protocol PRN Reason: Hypoglycemia Protocol Dextrose (Dextrose 50% Inj) 0 ml IV STAT PRN; Protocol PRN Reason: Hyglycemia Protocol Ergocalciferol (Drisdol 50,000 Intl Units Cap) 1 cap PO We@0900 [facility] Last Admin: 01/03/17 08:53 Dose: 1 cap Furosemide (Lasix) 20 mg PO DAILY [facility] Last Admin: 01/03/17 08:53 Dose: 20 mg Glipizide (Glucotrol Xl) 10 mg PO BRK [facility] Last Admin: 01/03/17 08:54 Dose: 10 mg Glucagon (Glucagen Diagnostic Kit) 0 mg IM STAT PRN; Protocol PRN Reason: Hypoglycemia Protocol Hydrochlorothiazide (Hydrodiuril) 25 mg PO DAILY [facility] Last Admin: 01/03/17 08:53 Dose: 25 mg Iron Sucrose 200 mg/ Sodium (Chloride) 110 mls @ 110 mls/hr IVPB DAILY [facility] Stop: 01/06/17 09:01 Last Admin: 01/03/17 12:08 Dose: 110 mls/hr Insulin Detemir (Levemir) 17 units SC HS [facility] Last Admin: 01/03/17 00:39 Dose: 17 units Insulin Human Lispro (Humalog) 20 units SC ACTID [facility] Last Admin: 01/03/17 13:08 Dose: Not Given Levothyroxine Sodium (Synthroid) 300 mcg PO DAILY@0630 [facility] Last Admin: 01/03/17 06:17 Dose: 300 mcg Lisinopril (Zestril) 40 mg PO DAILY [facility] Last Admin: 01/03/17 08:54 Dose: 40 mg Metformin HCl (Glucophage) 1,000 mg PO BID [facility] Metoprolol Succinate (Toprol Xl) 100 mg PO DAILY [facility] Last Admin: 01/03/17 08:52 Dose: 100 mg Pantoprazole Sodium (Protonix Ec Tab) 40 mg PO DAILY [facility] Last Admin: 01/03/17 08:53 Dose: 40 mg Physical Exam - Constitutional Appears: Well, Non-toxic, No Acute Distress - Head Exam Head Exam: ATRAUMATIC, NORMAL INSPECTION - Eye Exam Eye Exam: Normal appearance - ENT Exam ENT Exam: Mucous Membranes Moist - Respiratory Exam Respiratory Exam: NORMAL BREATHING PATTERN - GI/Abdominal Exam GI & Abdominal Exam: Normal Bowel Sounds, Soft. absent: Tenderness - Exam External exam: NORMAL EXTERNAL EXAM Speculum exam: NORMAL SPECULUM EXAM, Vaginal Bleeding (cervical os, no masses or lesions visible.). absent: Cervical Discharge, Foreign Body, Vaginal Discharge - Extremities Exam Extremities exam: Positive for: normal inspection - Skin Skin Exam: Pallor Results - Vital Signs Recent Vital Signs: Last Vital Signs Temp 97.9 F 01/03/17 13:09 Pulse 90 01/03/17 13:09 Resp 20 01/03/17 13:09 BP 151/80 H 01/03/17 13:09 Pulse Ox 100 01/03/17 13:09 - Labs Result Diagrams: 01/03/17 12:00 01/03/17 07:35 Labs: Laboratory Results - last 24 hr 01/02/17 01/02/17 01/03/17 21:50 23:04 00:43 WBC RBC Hgb Hct MCV MCH MCHC RDW Plt Count Retic Count 2.1 H Sodium Potassium Chloride Carbon Dioxide Anion Gap BUN Creatinine Est GFR ( Amer) Est GFR (Non-Af Amer) POC Glucose (mg/dL) 262 H 269 H Random Glucose Calcium Iron 17 L TIBC 242 L % Saturation 7 L Ferritin Total Bilirubin AST ALT Alkaline Phosphatase Total Protein Albumin Globulin Albumin/Globulin Ratio Vitamin B12 412 01/03/17 01/03/17 01/03/17 04:45 05:07 07:35 WBC RBC Hgb Hct MCV MCH MCHC RDW Plt Count Retic Count Sodium 142 Potassium 3.6 Chloride 110 H Carbon Dioxide 21 L Anion Gap 15 BUN 23 H Creatinine 1.6 H Est GFR ( Amer) 45 Est GFR (Non-Af Amer) 37 POC Glucose (mg/dL) 238 H Random Glucose 227 H Calcium 8.4 Iron TIBC % Saturation Ferritin 11.7 Total Bilirubin 0.3 AST 13 L D ALT 23 Alkaline Phosphatase 123 Total Protein 5.9 L Albumin 2.4 L Globulin 3.4 Albumin/Globulin Ratio 0.7 L Vitamin B12 01/03/17 01/03/17 01/03/17 08:21 12:00 12:44 WBC 8.4 9.9 RBC 3.58 L 4.12 Hgb 8.8 L D 9.7 L Hct 26.3 L 31.0 L MCV 73.6 L 75.1 L MCH 24.6 L 23.6 L MCHC 33.4 31.4 L RDW 17.3 H 16.9 H Plt Count 431 H 550 H D Retic Count Sodium Potassium Chloride Carbon Dioxide Anion Gap BUN Creatinine Est GFR ( Amer) Est GFR (Non-Af Amer) POC Glucose (mg/dL) 76 Random Glucose Calcium Iron TIBC % Saturation Ferritin Total Bilirubin AST ALT Alkaline Phosphatase Total Protein Albumin Globulin Albumin/Globulin Ratio Vitamin B12 Assessment & Plan - Assessment and Plan (Free Text) Plan: Assessment: Endometriosis 36 y/o female with history of menorrhagia, chronic blood loss anemia, and painful menses consistent with diagnosis of endometriosis. Patient is currently hemodynamically stable. There is no acute intervention indicated at this time. She would benefit from medical optimization of her hypothyroidism, diabetes and weight. Discussed with patient regarding medical vs surgical management. Recommend that the patient be evaluated by outpatient BUSINESS SERVICES REPRESENTATIVE to establish care and receive the appropriate treatment. Plan: -Patient would benefit from treatment with Provera or other progesterone medication that can be given on outpatient basis. -Combined OCPs contraindicated due to HTN -Recommend patient be seen by JEWEL BEARING FACER within 1-2 weeks after medical optimization and discharge from hospital. -Referred patient to [facility] for outpatient follow up with Dr. Mcgee. The patient was seen and examined with Dr. Hall. <Rosie Hall S - Last Filed: 01/04/17 07:47> History of Present Illness - History of Present Illness History of Present Illness: OBH NOTE: Pt seen & examined by me. Agree with above assessment and plan. P: pt advised that poorly controlled thyroid disease can lead to menorrhagia. d/w pt adenomyosis and that when she may need provera to aid in dysmenorrhea and menorrhagia. she understands that menorrhagia should improve with appropriated dose of synthroid. 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 Meds - Medications Medications: Current Medications Amlodipine Besylate (Norvasc) 10 mg PO DAILY [facility] Last Admin: 01/03/17 08:53 Dose: 10 mg Atorvastatin Calcium (Lipitor) 80 mg PO HS [facility] Last Admin: 01/03/17 21:25 Dose: 80 mg Dextrose (Glutose 15) 0 gm PO ONCE PRN; Protocol PRN Reason: Hypoglycemia Protocol Dextrose (Dextrose 50% Inj) 0 ml IV STAT PRN; Protocol PRN Reason: Hyglycemia Protocol Ergocalciferol (Drisdol 50,000 Intl Units Cap) 1 cap PO We@0900 [facility] Last Admin: 01/03/17 08:53 Dose: 1 cap Furosemide (Lasix) 20 mg PO DAILY [facility] Last Admin: 01/03/17 08:53 Dose: 20 mg Glipizide (Glucotrol Xl) 10 mg PO BRK [facility] Last Admin: 01/03/17 08:54 Dose: 10 mg Glucagon (Glucagen Diagnostic Kit) 0 mg IM STAT PRN; Protocol PRN Reason: Hypoglycemia Protocol Hydrochlorothiazide (Hydrodiuril) 25 mg PO DAILY [facility] Last Admin: 01/03/17 08:53 Dose: 25 mg Iron Sucrose 200 mg/ Sodium (Chloride) 110 mls @ 110 mls/hr IVPB DAILY [facility] Stop: 01/06/17 09:01 Last Admin: 01/03/17 12:08 Dose: 110 mls/hr Insulin Detemir (Levemir) 17 units SC HS [facility] Last Admin: 01/03/17 22:09 Dose: 17 units Insulin Human Lispro (Humalog) 20 units SC ACTID [facility] Last Admin: 01/03/17 16:36 Dose: 20 units Levothyroxine Sodium (Synthroid) 300 mcg PO DAILY@0630 [facility] Last Admin: 01/04/17 06:13 Dose: 300 mcg Lisinopril (Zestril) 40 mg PO DAILY [facility] Last Admin: 01/03/17 08:54 Dose: 40 mg Metformin HCl (Glucophage) 1,000 mg PO BID [facility] Metoprolol Succinate (Toprol Xl) 100 mg PO DAILY [facility] Last Admin: 01/03/17 08:52 Dose: 100 mg Pantoprazole Sodium (Protonix Ec Tab) 40 mg PO DAILY [facility] Last Admin: 01/03/17 08:53 Dose: 40 mg Results - Vital Signs Recent Vital Signs: Last Vital Signs Temp 98.7 F 01/04/17 05:03 Pulse 90 01/04/17 05:03 Resp 20 01/04/17 05:03 BP 150/81 01/04/17 05:03 Pulse Ox 97 01/04/17 05:03 - Labs Result Diagrams: 01/04/17 04:10 01/04/17 04:10 Labs: Laboratory Results - last 24 hr 01/02/17 01/02/17 01/03/17 21:50 23:04 07:35 WBC RBC Hgb Hct MCV MCH MCHC RDW Plt Count Sodium 142 Potassium 3.6 Chloride 110 H Carbon Dioxide 21 L Anion Gap 15 BUN 23 H Creatinine 1.6 H Est GFR ( Amer) 45 Est GFR (Non-Af Amer) 37 POC Glucose (mg/dL) 262 H Random Glucose 227 H Calcium 8.4 Total Bilirubin 0.3 AST 13 L D ALT 23 Alkaline Phosphatase 123 Total Protein 5.9 L Albumin 2.4 L Globulin 3.4 Albumin/Globulin Ratio 0.7 L Folate 17.3 RBC Folate 772 Free T4 Thyroxine (T4) Total T3 Complement C3 Complement C4 Hep Bs Antigen Hep Bs Antibody 01/03/17 01/03/17 01/03/17 08:21 12:00 12:44 WBC 8.4 9.9 RBC 3.58 L 4.12 Hgb 8.8 L D 9.7 L Hct 26.3 L 31.0 L MCV 73.6 L 75.1 L MCH 24.6 L 23.6 L MCHC 33.4 31.4 L RDW 17.3 H 16.9 H Plt Count 431 H 550 H D Sodium Potassium Chloride Carbon Dioxide Anion Gap BUN Creatinine Est GFR ( Amer) Est GFR (Non-Af Amer) POC Glucose (mg/dL) 76 Random Glucose Calcium Total Bilirubin AST ALT Alkaline Phosphatase Total Protein Albumin Globulin Albumin/Globulin Ratio Folate RBC Folate Free T4 Thyroxine (T4) Total T3 Complement C3 159.0 Complement C4 57.5 H Hep Bs Antigen Negative Hep Bs Antibody Negative 01/03/17 01/03/17 01/03/17 15:59 20:33 22:01 WBC RBC Hgb Hct MCV MCH MCHC RDW Plt Count Sodium Potassium Chloride Carbon Dioxide Anion Gap BUN Creatinine Est GFR ( Amer) Est GFR (Non-Af Amer) POC Glucose (mg/dL) 190 H 63 L 122 H Random Glucose Calcium Total Bilirubin AST ALT Alkaline Phosphatase Total Protein Albumin Globulin Albumin/Globulin Ratio Folate RBC Folate Free T4 Thyroxine (T4) Total T3 Complement C3 Complement C4 Hep Bs Antigen Hep Bs Antibody 01/04/17 01/04/17 04:10 05:27 WBC 9.4 RBC 3.65 L Hgb 8.7 L Hct 27.2 L MCV 74.5 L MCH 23.9 L MCHC 32.1 L RDW 17.3 H Plt Count 465 H Sodium 143 Potassium 3.8 Chloride 108 H Carbon Dioxide 24 Anion Gap 15 BUN 23 H Creatinine 1.7 H Est GFR ( Amer) 42 Est GFR (Non-Af Amer) 34 POC Glucose (mg/dL) 112 H Random Glucose 123 H Calcium 8.2 L Total Bilirubin 0.2 AST 16 ALT 20 Alkaline Phosphatase 113 Total Protein 6.1 L Albumin 2.5 L Globulin 3.6 Albumin/Globulin Ratio 0.7 L Folate RBC Folate Free T4 1.63 Thyroxine (T4) 9.98 Total T3 1.17 L Complement C3 Complement C4 Hep Bs Antigen Hep Bs Antibody
[2017-01-03 14:07] LABS: FOLATE 17.3 ng/mL
--- NOTE | 2017-01-03 18:54 | CP.PCM.CON ---
History of Present Illness - History of Present Illness History of Present Illness: pt seen and examined, full consult is dictated #[id number] 1. ckd-3, r/o dmn vs ch gn 2. uncontrolled htb 3. uncontrolled dm 4. severe anemia, symptomatic , sec to fe deficiency and /or ckd 5. proteinura r/o dmn keep bp <130/70 consider to add losartn 100 mg qd or hydralazine 10 mg po q 8hrs c/w hctz 25 mg po qd and lasix 40 mg po qd and increase as needed Past Patient History - Past Medical History & Family History Past Medical History?: Yes - Past Social History Smoking Status: Never Smoked - CARDIAC Hx Cardiac Disorders: Yes - PULMONARY Hx Respiratory Disorders: No - NEUROLOGICAL Hx Neurological Disorder: No - HEENT Hx HEENT Problems: No - RENAL Hx Chronic Kidney Disease: No - ENDOCRINE/METABOLIC Hx Endocrine Disorders: Yes - HEMATOLOGICAL/ONCOLOGICAL Hx Blood Disorders: Yes - INTEGUMENTARY Hx Dermatological Problems: No - MUSCULOSKELETAL/RHEUMATOLOGICAL Hx Falls: No - GASTROINTESTINAL Hx Gastrointestinal Disorders: No - GENITOURINARY/GYNECOLOGICAL Hx Genitourinary Disorders: No - PSYCHIATRIC Hx Substance Use: No - SURGICAL HISTORY Hx Surgeries: Yes - ANESTHESIA Hx Anesthesia: Yes Hx Anesthesia Reactions: No Meds Allergies/Adverse Reactions: Allergies Allergy/AdvReac Type Severity Reaction Status Date / Time No Known Allergies Allergy Verified 01/02/17 18:34 - Medications Medications: Current Medications Amlodipine Besylate (Norvasc) 10 mg PO DAILY [facility] Last Admin: 01/03/17 08:53 Dose: 10 mg Atorvastatin Calcium (Lipitor) 80 mg PO HS [facility] Dextrose (Glutose 15) 0 gm PO ONCE PRN; Protocol PRN Reason: Hypoglycemia Protocol Dextrose (Dextrose 50% Inj) 0 ml IV STAT PRN; Protocol PRN Reason: Hyglycemia Protocol Ergocalciferol (Drisdol 50,000 Intl Units Cap) 1 cap PO We@0900 [facility] Last Admin: 01/03/17 08:53 Dose: 1 cap Furosemide (Lasix) 20 mg PO DAILY [facility] Last Admin: 01/03/17 08:53 Dose: 20 mg Glipizide (Glucotrol Xl) 10 mg PO BRK [facility] Last Admin: 01/03/17 08:54 Dose: 10 mg Glucagon (Glucagen Diagnostic Kit) 0 mg IM STAT PRN; Protocol PRN Reason: Hypoglycemia Protocol Hydrochlorothiazide (Hydrodiuril) 25 mg PO DAILY [facility] Last Admin: 01/03/17 08:53 Dose: 25 mg Iron Sucrose 200 mg/ Sodium (Chloride) 110 mls @ 110 mls/hr IVPB DAILY [facility] Stop: 01/06/17 09:01 Last Admin: 01/03/17 12:08 Dose: 110 mls/hr Insulin Detemir (Levemir) 17 units SC HS [facility] Last Admin: 01/03/17 00:39 Dose: 17 units Insulin Human Lispro (Humalog) 20 units SC ACTID [facility] Last Admin: 01/03/17 16:36 Dose: 20 units Levothyroxine Sodium (Synthroid) 300 mcg PO DAILY@0630 [facility] Last Admin: 01/03/17 06:17 Dose: 300 mcg Lisinopril (Zestril) 40 mg PO DAILY [facility] Last Admin: 01/03/17 08:54 Dose: 40 mg Metformin HCl (Glucophage) 1,000 mg PO BID [facility] Metoprolol Succinate (Toprol Xl) 100 mg PO DAILY [facility] Last Admin: 01/03/17 08:52 Dose: 100 mg Pantoprazole Sodium (Protonix Ec Tab) 40 mg PO DAILY [facility] Last Admin: 01/03/17 08:53 Dose: 40 mg Results - Vital Signs Recent Vital Signs: Last Vital Signs Temp 98.2 F 01/03/17 16:00 Pulse 93 H 01/03/17 16:00 Resp 18 01/03/17 16:00 BP 160/83 H 01/03/17 16:00 Pulse Ox 100 01/03/17 16:00 - Labs Result Diagrams: 01/03/17 12:00 01/03/17 07:35 Labs: Laboratory Results - last 24 hr 01/02/17 01/02/17 01/03/17 21:50 23:04 00:43 WBC RBC Hgb Hct MCV MCH MCHC RDW Plt Count Retic Count 2.1 H Sodium Potassium Chloride Carbon Dioxide Anion Gap BUN Creatinine Est GFR ( Amer) Est GFR (Non-Af Amer) POC Glucose (mg/dL) 262 H 269 H Random Glucose Calcium Iron 17 L TIBC 242 L % Saturation 7 L Ferritin Total Bilirubin AST ALT Alkaline Phosphatase Total Protein Albumin Globulin Albumin/Globulin Ratio Vitamin B12 412 Folate 17.3 RBC Folate 772 Hep Bs Antigen 01/03/17 01/03/1701/03/17 04:45 05:07 07:35 WBC RBC Hgb Hct MCV MCH MCHC RDW Plt Count Retic Count Sodium 142 Potassium 3.6 Chloride 110 H Carbon Dioxide 21 L Anion Gap 15 BUN 23 H Creatinine 1.6 H Est GFR ( Amer) 45 Est GFR (Non-Af Amer) 37 POC Glucose (mg/dL) 238 H Random Glucose 227 H Calcium 8.4 Iron TIBC % Saturation Ferritin 11.7 Total Bilirubin 0.3 AST 13 L D ALT 23 Alkaline Phosphatase 123 Total Protein 5.9 L Albumin 2.4 L Globulin 3.4 Albumin/Globulin Ratio 0.7 L Vitamin B12 Folate RBC Folate Hep Bs Antigen 01/03/17 01/03/17 01/03/17 08:21 12:00 12:44 WBC 8.4 9.9 RBC 3.58 L 4.12 Hgb 8.8 L D 9.7 L Hct 26.3 L 31.0 L MCV 73.6 L 75.1 L MCH 24.6 L 23.6 L MCHC 33.4 31.4 L RDW 17.3 H 16.9 H Plt Count 431 H 550 H D Retic Count Sodium Potassium Chloride Carbon Dioxide Anion Gap BUN Creatinine Est GFR ( Amer) Est GFR (Non-Af Amer) POC Glucose (mg/dL) 76 Random Glucose Calcium Iron TIBC % Saturation Ferritin Total Bilirubin AST ALT Alkaline Phosphatase Total Protein Albumin Globulin Albumin/Globulin Ratio Vitamin B12 Folate RBC Folate Hep Bs Antigen Negative 01/03/17 15:59 WBC RBC Hgb Hct MCV MCH MCHC RDW Plt Count Retic Count Sodium Potassium Chloride Carbon Dioxide Anion Gap BUN Creatinine Est GFR ( Amer) Est GFR (Non-Af Amer) POC Glucose (mg/dL) 190 H Random Glucose Calcium Iron TIBC % Saturation Ferritin Total Bilirubin AST ALT Alkaline Phosphatase Total Protein Albumin Globulin Albumin/Globulin Ratio Vitamin B12 Folate RBC Folate Hep Bs Antigen
[2017-01-03] MEDS ORDERED: INSULIN GLARGINE SC SCH (22:00)
--- NOTE | 2017-01-03 23:44 | CON ---
DATE: 01/03/2017 LOCATION: The patient is located in room 403, bed 1. REQUESTING PHYSICIAN: Dr. Hilario Salinas. REASON FOR RENAL CONSULTATION: Increased BUN and creatinine and severe anemia, symptomatic, and proteinuria for further evaluation. HISTORY OF PRESENT ILLNESS: The patient is a 36-year-old female with a past medical history significant for insulin-dependent diabetes since the age of 18 for about 18 years and history of hypertension for 5 years and hypothyroidism, history of preeclampsia in 2010, hyperlipidemia, who was admitted with chief complaints of shortness of breath and dyspnea on exertion, chest discomfort for 4 weeks. The patient also denies any fever, any cough, any nausea, vomiting, diarrhea. The patient has complaints of swelling of both lower extremities for the last 2 weeks and denies any headache or dizziness. The patient is feeling much better after the transfusion of 2 units of packed RBCs. PAST MEDICAL HISTORY: Significant for diabetes for 18 years and hypertension for 5 years, hypothyroidism, hyperlipidemia and preeclampsia in 2010. PAST SURGICAL HISTORY: x 3. ALLERGIES: No known drug allergies. SOCIAL HISTORY: Denies any smoking, alcohol or drugs. PERSONAL HISTORY: She lives with her partner and she has 2 children. FAMILY HISTORY: Mother at age 54 secondary to hypertension, diabetes, end-stage renal disease, CHF. The father is alive at 65; significant for hypertension, diabetes, and also a smoker. She has 1 sister who is positive significant for diabetes. REVIEW OF SYSTEMS: Significant for dyspnea on exertion, shortness of breath, chest discomfort and bilateral lower extremity swelling and symptomatic anemia. All other review of systems are reviewed and are negative. CURRENT MEDICATIONS: Include as follows: Ergocalciferol 50,000 units 1 capsule q. weekly, glipizide 10 mg with breakfast, insulin regular 8 units x 1, hydrochlorothiazide 25 mg p.o. daily, Lasix 40 mg x 1 and then Lasix 20 mg p.o. daily, insulin detemir 17 units subQ at bedtime, Lipitor 80 mg p.o. at bedtime, metoprolol 100 mg p.o. x 1 dose, amlodipine 10 mg daily, pneumococcal vaccine x 1, Protonix 40 mg p.o. daily, levothyroxine 300 mcg daily, metoprolol 100 mg daily, iron sucrose 200 mg daily, lisinopril 40 mg p.o. daily, metformin 1000 mg p.o. b.i.d., insulin lispro 20 units subQ a.c. t.i.d. PHYSICAL EXAMINATION: VITAL SIGNS: Blood pressure 152/83, pulse 93, respirations 18, temperature 98.2 , saturation 99%, height 5 feet 6 inches. GENERAL: The patient is a 36-year-old female, moderately built, moderately nourished, not in acute distress. HEENT: Pupils normal, reactive to light and accommodation. Conjunctivae pink. Sclerae anicteric. Tongue is moist. NECK: Trachea midline. LUNGS: Symmetric on both sides. Bilateral breath sounds present. No crackles. CARDIOVASCULAR: [place] in the fifth intercostal space half inch middle to midclavicular line. S1 and S2 audible. No murmur, no gallop. ABDOMEN: Normal in appearance, soft, tympanic. No guarding, no rigidity. No hepatosplenomegaly. CENTRAL NERVOUS SYSTEM: The patient is alert, awake, oriented x 3. Nonfocal on examination. Cranial nerves II-XII grossly intact. Sensory and motor system is within normal limits. EXTREMITIES: No cyanosis, no clubbing. The patient has 2+ edema in both lower extremities and also sacral edema is present. LABORATORY DATA: Include as follows: As of 01/02/2017, WBC 8.3, hemoglobin 6.7 , hematocrit is 21.8, platelets 445. PT 10.4 and PTT 22.3. D-dimer is 2.37. Sodium 137, potassium 4.1, chloride 102, CO2 21, BUN 23, creatinine 1.7, glucose 434, calcium 8.6 and iron is 17, TIBC 242, saturation 7%. Total bilirubin 0.3, AST 17, ALT 23, alkaline phosphatase 146. Troponin 0.0102. ProBNP 4640, total protein 6.3, albumin is 2.7. B12 is 412, folic acid 17.3, RBC folate is 772 and TSH is 0.27. Urinalysis: Yellow, slightly cloudy, pH 7, specific gravity 1012. Protein more than 500, glucose more than 500, ketones negative, blood large, nitrites negative, bilirubin negative, urobilinogen 0.2- 1.0, leukocyte esterase negative, RBC 73, WBC 3 and epithelial cells 5, bacteria rare. Other laboratory data: C3 is 159 and C4 is 57.5 and hepatitis B surface antigen is negative. Other reports: Ultrasound of the abdomen and ultrasound of the kidneys. As of 01/03/2017, right kidney 10.6 x 5.5 x 4.3 and the left kidney is 10.5 x 5.8 cm x 5.8 cm. Echogenic renal parenchyma. Impression: Nonobstructive calculus, no obstructing calculus or hydronephrosis identified. Echogenic renal parenchyma may be seen in the setting of medical renal disease. Question presence of a punctate, nonobstructing left upper pole renal calculus. EKG: Heart rate is 136 and ID is 70s and heart rate is 103, ID interval is 136 and QRS is 78 and QT is 350, QTc is 458, sinus tachycardia, nonspecific T-wave abnormality. SUMMARY: The patient is a 36-year-old female with a history of diabetes for 18 years, hypertension, preeclampsia in 2010, hyperlipidemia, hypothyroidism, proteinuria, increased BUN and creatinine with dyspnea on exertion, shortness of breath, bilateral leg swelling with increased BUN and creatinine and status post transfusion of 2 units packed RBC. 1. Renal failure, chronic kidney disease III most likely secondary to diabetic nephropathy, cannot rule out underlying chronic glomerulonephritis such as FSGS or IgA nephropathy. 2. Hypertension. Blood pressure is still running high. Continue Norvasc 10 mg and Toprol-XL 100 mg p.o. daily and continue Zestril 40 mg p.o. daily and consider hydralazine if blood pressure is more than 140. Will try to keep the blood pressure below 120/70 if possible and we will check hepatitis C antibody, JANET, ANCA, anti-GBM antibody and UPEP and SPEP and continue IV iron as per the hematology recommendations. We will follow with you. Thank you for allowing me to participate in your patient's care. Orville Renae MD cc: [id number] TT: 01/03/2017 23:44:06 Confirmation # [id number] Dictation # [id number] ln MTDD
--- NOTE | 2017-01-04 02:23 | CP.PCM.CON ---
History of Present Illness - History of Present Illness History of Present Illness: 36 year old female with a history of DM, HTN, CKD, hypothyroidism, admitted with chest pain and anemia. The patient reports to heavy periods and passag eof clots. She notes to increasing fatigue, dyspnea with exertion, and palpitations with stairs. Past medical history: DM, HTN, CKD, hypothyroidism Past surgical history: x 3 Family history: Denies hematologic and oncologic problems Social history: Denies tobacco, alcohol and illicit drug use. Allergies: NKA Review of systems: All remaining review of systems including HEENT, cardiovascular, respiratory, gastrointestinal, genitourinary, musculoskeletal, dermatologic, neurologic, and psychiatric are negative unless mentioned in the HPI. Past Patient History - Past Medical History & Family History Past Medical History?: Yes - Past Social History Smoking Status: Never Smoked - CARDIAC Hx Cardiac Disorders: Yes - PULMONARY Hx Respiratory Disorders: No - NEUROLOGICAL Hx Neurological Disorder: No - HEENT Hx HEENT Problems: No - RENAL Hx Chronic Kidney Disease: No - ENDOCRINE/METABOLIC Hx Endocrine Disorders: Yes - HEMATOLOGICAL/ONCOLOGICAL Hx Blood Disorders: Yes - INTEGUMENTARY Hx Dermatological Problems: No - MUSCULOSKELETAL/RHEUMATOLOGICAL Hx Falls: No - GASTROINTESTINAL Hx Gastrointestinal Disorders: No - GENITOURINARY/GYNECOLOGICAL Hx Genitourinary Disorders: No - PSYCHIATRIC Hx Substance Use: No - SURGICAL HISTORY Hx Surgeries: Yes - ANESTHESIA Hx Anesthesia: Yes Hx Anesthesia Reactions: No Meds Allergies/Adverse Reactions: Allergies Allergy/AdvReac Type Severity Reaction Status Date / Time No Known Allergies Allergy Verified 01/02/17 18:34 - Medications Medications: Current Medications Amlodipine Besylate (Norvasc) 10 mg PO DAILY [facility] Last Admin: 01/03/17 08:53 Dose: 10 mg Atorvastatin Calcium (Lipitor) 80 mg PO HS [facility] Last Admin: 01/03/17 21:25 Dose: 80 mg Dextrose (Glutose 15) 0 gm PO ONCE PRN; Protocol PRN Reason: Hypoglycemia Protocol Dextrose (Dextrose 50% Inj) 0 ml IV STAT PRN; Protocol PRN Reason: Hyglycemia Protocol Ergocalciferol (Drisdol 50,000 Intl Units Cap) 1 cap PO We@0900 [facility] Last Admin: 01/03/17 08:53 Dose: 1 cap Furosemide (Lasix) 20 mg PO DAILY [facility] Last Admin: 01/03/17 08:53 Dose: 20 mg Glipizide (Glucotrol Xl) 10 mg PO BRK [facility] Last Admin: 01/03/17 08:54 Dose: 10 mg Glucagon (Glucagen Diagnostic Kit) 0 mg IM STAT PRN; Protocol PRN Reason: Hypoglycemia Protocol Hydrochlorothiazide (Hydrodiuril) 25 mg PO DAILY [facility] Last Admin: 01/03/17 08:53 Dose: 25 mg Iron Sucrose 200 mg/ Sodium (Chloride) 110 mls @ 110 mls/hr IVPB DAILY [facility] Stop: 01/06/17 09:01 Last Admin: 01/03/17 12:08 Dose: 110 mls/hr Insulin Detemir (Levemir) 17 units SC HS [facility] Last Admin: 01/03/17 22:09 Dose: 17 units Insulin Human Lispro (Humalog) 20 units SC ACTID [facility] Last Admin: 01/03/17 16:36 Dose: 20 units Levothyroxine Sodium (Synthroid) 300 mcg PO DAILY@0630 [facility] Last Admin: 01/03/17 06:17 Dose: 300 mcg Lisinopril (Zestril) 40 mg PO DAILY [facility] Last Admin: 01/03/17 08:54 Dose: 40 mg Metformin HCl (Glucophage) 1,000 mg PO BID [facility] Metoprolol Succinate (Toprol Xl) 100 mg PO DAILY [facility] Last Admin: 01/03/17 08:52 Dose: 100 mg Pantoprazole Sodium (Protonix Ec Tab) 40 mg PO DAILY [facility] Last Admin: 01/03/17 08:53 Dose: 40 mg Physical Exam - Head Exam Head Exam: ATRAUMATIC - Eye Exam Eye Exam: Normal appearance - ENT Exam ENT Exam: Mucous Membranes Dry - Respiratory Exam Respiratory Exam: NORMAL BREATHING PATTERN - Cardiovascular Exam Cardiovascular Exam: +S1, +S2 - GI/Abdominal Exam GI & Abdominal Exam: Normal Bowel Sounds - Extremities Exam Extremities exam: Positive for: normal inspection - Neurological Exam Neurological exam: Oriented x3 - Psychiatric Exam Psychiatric exam: Normal Affect, Normal Mood - Skin Skin Exam: Warm Results - Vital Signs Recent Vital Signs: Last Vital Signs Temp 98.4 F 01/03/17 23:56 Pulse 95 H 01/03/17 23:56 Resp 20 01/03/17 23:56 BP 167/83 H 01/03/17 23:56 Pulse Ox 100 01/03/17 23:56 - Labs Result Diagrams: 01/03/17 12:00 04/19/17 07:35 Labs: Laboratory Results - last 24 hr 01/02/17 01/02/17 01/03/17 21:50 23:04 00:43 WBC RBC Hgb Hct MCV MCH MCHC RDW Plt Count Sodium Potassium Chloride Carbon Dioxide Anion Gap BUN Creatinine Est GFR ( Amer) Est GFR (Non-Af Amer) POC Glucose (mg/dL) 262 H 269 H Random Glucose Calcium Ferritin Total Bilirubin AST ALT Alkaline Phosphatase Total Protein Albumin Globulin Albumin/Globulin Ratio Folate 17.3 RBC Folate 772 Complement C3 Complement C4 Hep Bs Antigen Hep Bs Antibody 01/03/17 01/03/17 01/03/17 04:45 05:07 07:35 WBC RBC Hgb Hct MCV MCH MCHC RDW Plt Count Sodium 142 Potassium 3.6 Chloride 110 H Carbon Dioxide 21 L Anion Gap 15 BUN 23 H Creatinine 1.6 H Est GFR ( Amer) 45 Est GFR (Non-Af Amer) 37 POC Glucose (mg/dL) 238 H Random Glucose 227 H Calcium 8.4 Ferritin 11.7 Total Bilirubin 0.3 AST 13 L D ALT 23 Alkaline Phosphatase 123 Total Protein 5.9 L Albumin 2.4 L Globulin 3.4 Albumin/Globulin Ratio 0.7 L Folate RBC Folate Complement C3 Complement C4 Hep Bs Antigen Hep Bs Antibody 01/03/17 01/03/17 01/03/17 08:21 12:00 12:44 WBC 8.4 9.9 RBC 3.58 L 4.12 Hgb 8.8 L D 9.7 L Hct 26.3 L 31.0 L MCV 73.6 L 75.1 L MCH 24.6 L 23.6 L MCHC 33.4 31.4 L RDW 17.3 H 16.9 H Plt Count 431 H 550 H D Sodium Potassium Chloride Carbon Dioxide Anion Gap BUN Creatinine Est GFR ( Amer) Est GFR (Non-Af Amer) POC Glucose (mg/dL) 76 Random Glucose Calcium Ferritin Total Bilirubin AST ALT Alkaline Phosphatase Total Protein Albumin Globulin Albumin/Globulin Ratio Folate RBC Folate Complement C3 159.0 Complement C4 57.5 H Hep Bs Antigen Negative Hep Bs Antibody Negative 01/03/17 01/03/17 01/03/17 15:59 20:33 22:01 WBC RBC Hgb Hct MCV MCH MCHC RDW Plt Count Sodium Potassium Chloride Carbon Dioxide Anion Gap BUN Creatinine Est GFR ( Amer) Est GFR (Non-Af Amer) POC Glucose (mg/dL) 190 H 63 L 122 H Random Glucose Calcium Ferritin Total Bilirubin AST ALT Alkaline Phosphatase Total Protein Albumin Globulin Albumin/Globulin Ratio Folate RBC Folate Complement C3 Complement C4 Hep Bs Antigen Hep Bs Antibody Assessment & Plan (1) Anemia Assessment and Plan: work up consistent with iron deficiency likely from menorrhagia s/p 2U PRBC on parenteral iron element of anemia of CKD Thank you for this interesting consult. Status: Acute
[2017-01-04 05:29] LABS: HEMATOCRIT 27.2 % (34.0-47.0); MEAN CELL VOLUME 74.5 fl (81.0-99.0); MEAN CORPUSCULAR HEMOGLOBIN 23.9 pg (27.0-31.0); MEAN CORPUSCULAR HGB CONC 32.1 g/dL (33.0-37.0); RED CELL DISTRIBUTION WIDTH 17.3 % (11.5-14.5); WHITE BLOOD COUNT 9.4 K/uL (4.8-10.8)
[2017-01-04 05:51] LABS: ALB/GLOB RATIO 0.7 (1.0-2.1); BILIRUBIN,TOTAL 0.2 mg/dl (0.2-1.3); CALCIUM 8.2 mg/dL (8.4-10.2); POTASSIUM 3.8 MMOL/L (3.6-5.0); TOTAL PROTEIN 6.1 G/DL (6.3-8.2)
[2017-01-04 05:54] LABS: T4 9.98 ug/dl (5.5-11.0)
[2017-01-04] MEDS: Levothyroxine 150 MCG TAB PO SCH (06:13)
[2017-01-04] MEDS: Metoprolol Succinate 100 mg XL Tab PO SCH (08:38)
[2017-01-04] MEDS: Pantoprazole 40 mg EC Tab PO SCH (08:39)
[2017-01-04] MEDS: Insulin Lispro (humaLOG) 100 Units/ml Inj SC SCH ×2 (08:41→11:18)
[2017-01-04] MEDS: GlipiZIDE 10 mg SR Tab PO SCH (08:41)
--- NOTE | 2017-01-04 09:46 | CP.PCM.PN ---
Subjective - Date & Time of Evaluation Date of Evaluation: 01/04/17 Time of Evaluation: 09:46 - Subjective Subjective: pt seen and examined, follow up consult is dictated #[id number] Objective - Vital Signs/Intake and Output Vital Signs (last 24 hours): Temp Pulse Resp BP Pulse Ox 98.8 F 93 H 18 154/90 H 98 01/04/17 08:03 01/04/17 08:40 01/04/17 08:03 01/04/17 08:40 01/04/17 08:03 - Medications Medications: Current Medications Amlodipine Besylate (Norvasc) 10 mg PO DAILY [facility] Last Admin: 01/04/17 08:40 Dose: 10 mg Atorvastatin Calcium (Lipitor) 80 mg PO HS [facility] Last Admin: 01/03/17 21:25 Dose: 80 mg Dextrose (Glutose 15) 0 gm PO ONCE PRN; Protocol PRN Reason: Hypoglycemia Protocol Dextrose (Dextrose 50% Inj) 0 ml IV STAT PRN; Protocol PRN Reason: Hyglycemia Protocol Ergocalciferol (Drisdol 50,000 Intl Units Cap) 1 cap PO We@0900 [facility] Last Admin: 01/03/17 08:53 Dose: 1 cap Furosemide (Lasix) 20 mg PO DAILY [facility] Last Admin: 01/04/17 08:40 Dose: 20 mg Glipizide (Glucotrol Xl) 10 mg PO BRK [facility] Last Admin: 01/04/17 08:41 Dose: 10 mg Glucagon (Glucagen Diagnostic Kit) 0 mg IM STAT PRN; Protocol PRN Reason: Hypoglycemia Protocol Hydrochlorothiazide (Hydrodiuril) 25 mg PO DAILY [facility] Last Admin: 01/04/17 08:40 Dose: 25 mg Iron Sucrose 200 mg/ Sodium (Chloride) 110 mls @ 110 mls/hr IVPB DAILY [facility] Stop: 01/06/17 09:01 Last Admin: 01/03/17 12:08 Dose: 110 mls/hr Insulin Detemir (Levemir) 17 units SC HS [facility] Last Admin: 01/03/17 22:09 Dose: 17 units Insulin Human Lispro (Humalog) 20 units SC ACTID [facility] Last Admin: 01/04/17 08:41 Dose: Not Given Levothyroxine Sodium (Synthroid) 300 mcg PO DAILY@0630 [facility] Last Admin: 01/04/17 06:13 Dose: 300 mcg Lisinopril (Zestril) 40 mg PO DAILY [facility] Last Admin: 01/04/17 08:39 Dose: 40 mg Metformin HCl (Glucophage) 1,000 mg PO BID [facility] Metoprolol Succinate (Toprol Xl) 100 mg PO DAILY [facility] Last Admin: 01/04/17 08:38 Dose: 100 mg Pantoprazole Sodium (Protonix Ec Tab) 40 mg PO DAILY [facility] Last Admin: 01/04/17 08:39 Dose: 40 mg - Labs Labs: 01/04/17 04:10 01/04/17 04:10 PT 10.4 SECONDS (9.6-11.2) 01/02/17 19:08 INR 1.00 (0.92-1.08) 01/02/17 19:08 APTT 22.3 SECONDS (23.3-32.5) L 01/02/17 19:08
[2017-01-04 10:02] LABS: TOTAL PROTEIN, SERUM 6.8 g/dL (6.1-8.1)
[2017-01-04 12:59] VITALS: BP 158/85; PULSE 89; RESP 20; TEMP 98.5
[2017-01-04] MEDS ORDERED: Miconazole 2% Vaginal 7 CREAM VAG SCH (22:00)
[2017-01-05 15:56] VITALS: O2SAT 100
--- NOTE | 2017-01-08 05:52 | PN ---
DATE: 01/04/2017 The patient is located in room 403, bed 1. REQUESTED BY: Dr. Hilario Salinas. REASON FOR RENAL CONSULTATION: Proteinuria, chronic kidney disease for further evaluation. The patient is a 36-year-old young female with a history of diabetes since age 18 for about 18 years, hypertension, proteinuria, chronic kidney disease, was admitted with dyspnea on exertion, weakness, and swelling of the legs. The patient was found to have severe anemia, and also found to have iron deficiency requiring transfusion of 2 units packed RBC, and also IV iron 200 mg IV piggyback daily x 2 doses. The patient is not in acute distress; feeling better , not in acute distress, and denies any headache, dizziness. Denies any chest pain, palpitations. Denies any fever, cough. Feeling better. Decreasing leg swelling. Her vital signs, physical exam, as well as blood pressure 154/90, pulse 93, respirations 20, temperature 98.5, saturation 98%. Height 5 feet 6 inches, and weight is 183 pounds. HENT AND PHYSICAL EXAMINATION: The patient is a 36-year-old female, moderately built, moderately nourished, not in acute distress. HENT: Pupils normal, reactive to light and accommodation. Conjunctivae pink, sclerae anicteric. Tongue is moist. Trachea is midline. LUNGS: Symmetric on both sides. Bilateral breath sounds present. Clear on auscultation. CARDIOVASCULAR SYSTEM: [place] in the 5th intercostal space of midclavicular line. S1 and S2 audible. No murmur or gallop. ABDOMEN: Normal in appearance, soft, tympanic. No guarding, no rigidity, no hepatosplenomegaly. CENTRAL NERVOUS SYSTEM: The patient is alert, awake, oriented x 3. Nonfocal on examination. Cranial nerves II-XII grossly intact. Sensory and motor system is within normal limits. EXTREMITIES: No cyanosis, no clubbing. The patient has 1+ edema in both lower extremities. Her current medications include as follows: Ergocalciferol 50,000 units q. weekly, and metformin 1000 mg p.o. b.i.d., and Glucotrol XL 10 mg p.o. with breakfast, and Humalog 20 units subQ a.c. t.i.d., and hydrochlorothiazide 25 mg daily, iron sucrose 200 mg daily, Lasix increased to 20 mg p.o. daily, and Levemir subQ at bedtime, Lipitor 80 mg p.o. at bedtime, and amlodipine 10 mg p.o. daily, Protonix 40 mg daily, Synthroid 300 mcg p.o. daily, Toprol-XL 100 mg p.o. daily, and Zestril 40 mg p.o. daily. Her laboratory data include as follows as of 01/04/2017: WBC 9.4, hemoglobin 8.7, hematocrit is 27.2, platelets 465. Sodium 143, potassium 3.8, chloride 108 , CO2 of 24, BUN 20, creatinine 1.7, and GFR is about 34 mL, and glucose is 123 , calcium 8.2, total bilirubin 0.8. AST 16, ALT 20, alkaline phos is 130. Total protein 6.1, albumin is 2.5. , and total T3 is 1.17, and 24-hour urine volume is 2800, and creatinine clearance is 53.9 mL, , and C3 is 159, and C4 is 57.5. Hepatitis B surface antigen negative, surface antibody is negative, and anti-GBM is pending, and protein electrophoresis pending. JANET is pending. In summary, the patient is a 36-year-old female with a history of diabetes since age 18 for about 18 years, hypertension, proteinuria, low H and H , and weakness, and shortness of breath. 1. Chronic kidney disease III. Most likely secondary to diabetic nephropathy. Cannot rule out underlying chronic glomerulonephritis, less likely. Workup is in progress. Hep C and JANET, protein electrophoresis are pending. Follow up as an outpatient. 2. Hypertension. Blood pressure systolic is still running high. Continue on Norvasc, continue on hydrochlorothiazide, Lasix, and Zestril, and metoprolol, and titrate metoprolol as needed, and continue hydralazine if her blood pressure still cannot achieve the goal. 3. Uncontrolled diabetes. 4. Fluid overload. 5. Anemia secondary to renal failure, and iron deficiency anemia. Consider p.o. iron supplement and multivitamin as an outpatient. Thank you for allowing me to participate in your patient's care. Orville Renae MD cc: [id number] TT: 01/04/2017 21:37:47 Confirmation # [id number] Dictation # [id number]
[2017-01-08 12:22] LABS: BETA 1 GLOBULIN 0.5 g/dL (0.4-0.6); BETA 2 GLOBULIN 0.4 g/dL (0.2-0.5); GAMMA GLOBULIN 1.1 g/dL (0.8-1.7)
== END 2017-01-04 14:08 | disposition home or self-care (01) | DRG 395 ==
LOC: H.ER 18:07 → H.ERHOLD 21:26 → H.TEL 23:34
PROVIDERS: ADMIT Family Medicine; ATTEND Family Medicine
PROC: 30233N1 Transfusion of Nonautologous Red Blood Cells into Peripheral Vein, Percutaneous Approach (ICD-10-PCS; principal; 2017-01-02)
PROC: 3E0234Z Introduction of Serum, Toxoid and Vaccine into Muscle, Percutaneous Approach (ICD-10-PCS; 2017-01-03)
DX: D50.0 Iron deficiency anemia secondary to blood loss (chronic) (principal); E10.21 Type 1 diabetes mellitus with diabetic nephropathy; N18.3 Chronic kidney disease, stage 3 (moderate); E10.22 Type 1 diabetes mellitus with diabetic chronic kidney disease; D63.1 Anemia in chronic kidney disease; E03.9 Hypothyroidism, unspecified; E78.5 Hyperlipidemia, unspecified; E10.65 Type 1 diabetes mellitus with hyperglycemia; Z79.4 Long term (current) use of insulin; I12.9 Hypertensive chronic kidney disease with stage 1 through stage 4 chronic kidney disease, or unspecified chronic kidney disease; Z23 Encounter for immunization; N92.0 Excessive and frequent menstruation with regular cycle; N80.0 Endometriosis of uterus

== ENCOUNTER 2019-01-13 16:43 | Emergency (ER) | payer MEDICAID ==
[2019-01-13 16:43] VITALS: BMI 27.4
[2019-01-13 17:05] VITALS: TEMP 98; O2SAT 100
[2019-01-13] MEDS ORDERED: Albuterol 0.083% Inhal Sol (2.5 mg/3 mL) UD INH ONE (17:36)
--- NOTE | 2019-01-13 17:37 | ED PDOC ---
HPI: SOB/CHF/COPD Time Seen by Provider: 01/13/19 17:00 Chief Complaint (Nursing): Shortness Of Breath Chief Complaint (Provider): Shortness of Breath History Per: Patient History/Exam Limitations: no limitations Onset/Duration Of Symptoms: Hrs Associated Symptoms: Ankle/Leg Swelling Additional Complaint(s): 38yo female presents to ED with cough and shortness of breath for 3x days. Patient reports minimal leg swelling but denies fever, chills, or chest pain. Patient has PMHx of HTN and DM and states is compliant w her meds. Patient states that she has been diagnosed with pneumonia in the past and this incident feels the same to her. Patient additionally denies any recent long-distance travelling and denies using hormonal contraceptives. Past Medical History Reviewed: Historical Data, Nursing Documentation, Vital Signs Vital Signs: Last Vital Signs Temp 98.0 F 01/13/19 17:03 Pulse 90 01/13/19 17:03 Resp 16 01/13/19 17:03 BP 189/116 H 01/13/19 17:03 Pulse Ox 100 01/13/19 17:03 Primary Care Physician: Dr. Monteiro - Medical History PMH: Anemia, Back Problems (herniated, bulging L4-L6 discs), Diabetes (type I), Fractures (right ankle), HTN, Hypothyroidism, Pneumonia Denies: HIV, Chronic Kidney Disease - Surgical History Surgical History: Back Surgery, (x3 and tubal ligation ) - Family History Family History: States: Unknown Family Hx - Social History Current smoker - smoking cessation education provided: No Alcohol: None Drugs: Denies - Immunization History Hx Tetanus Toxoid Vaccination: No Hx Influenza Vaccination: Yes Hx Pneumococcal Vaccination: No - Home Medications Home Medications: Ambulatory Orders Medication Instructions Recorded Atorvastatin [Lipitor] 80 mg PO HS 01/02/17 Ergocalciferol (Vitamin D2) 50,000 unit PO WE 01/02/17 [Vitamin D2] Insulin Glargine, Recombina 17 unit SC HS 01/02/17 [Lantus] Insulin Lispro [humALOG] 20 unit SC ACTID 01/02/17 Levothyroxine Sodium [Synthroid] 325 mcg PO DAILY 01/02/17 MetFORMIN [glucoPHAGE] 1,000 mg PO BID 01/02/17 Metoprolol Succinate 100 mg PO DAILY 01/02/17 amLODIPine [Norvasc] 10 mg PO DAILY 01/02/17 hydroCHLOROthiazide [Hydrodiuril] 25 mg PO DAILY 01/02/17 Ferrous Sulfate 325 mg PO BID #30 tablet 01/04/17 Furosemide [Lasix] 40 mg PO DAILY #30 tab 01/04/17 GlipiZIDE SR [Glucotrol XL] 10 mg PO BRK #30 tab 01/04/17 Lisinopril [Zestril] 40 mg PO DAILY #30 tab 01/04/17 Miconazole 2% Vaginal [Monistat 7 1 applic VAG HS #1 tube 01/04/17 Vaginal Cream] Pantoprazole [Protonix EC Tab] 40 mg PO DAILY #14 ect 01/04/17 Amoxicillin/Clavulanate [Augmentin 1 tab PO BID #20 tab 01/13/19 875 MG-125 MG] - Allergies Allergies/Adverse Reactions: Allergies Allergy/AdvReac Type Severity Reaction Status Date / Time No Known Allergies Allergy Verified 01/13/19 17:03 Wells Criteria for PE - Wells Criteria for Pulmonary Embolism Clinical Signs and Symptoms of DVT: No P.E is #1 Diagnosis, or Equally Likely: No Heart Rate >100: No Immobilization at least 3 days;Surgery previous 4 weeks: No Previous, objectively diagnosed PE or DVT: No Hemoptysis: No Malignancy w/treatment within 6 months, or palliative: No Total Score: 0 Review of Systems ROS Statement: Except As Marked, All Systems Reviewed And Found Negative Constitutional: Negative for: Fever, Chills Cardiovascular: Negative for: Chest Pain Respiratory: Positive for: Cough, Shortness of Breath Musculoskeletal: Positive for: Other (minimal leg swelling) Physical Exam - Reviewed Nursing Documentation Reviewed: Yes Vital Signs Reviewed: Yes - Physical Exam Appears: Positive for: Non-toxic, No Acute Distress Head Exam: Positive for: ATRAUMATIC, NORMAL INSPECTION, NORMOCEPHALIC Skin: Positive for: Normal Color, Warm, DRY Eye Exam: Positive for: Normal appearance ENT: Positive for: Normal ENT Inspection Neck: Positive for: Supple Cardiovascular/Chest: Positive for: Regular Rate, Rhythm Respiratory: Positive for: Decreased Breath Sounds (on the right lung field), Crackles. Negative for: Wheezing Gastrointestinal/Abdominal: Positive for: Normal Exam Back: Positive for: Normal Inspection Extremity: Positive for: Normal ROM, Pedal Edema (trace bilateral pedal edema) Neurological/Psych: Positive for: Awake, Alert, Normal Tone, Oriented (X3) - Laboratory Results Result Diagrams: 01/13/19 18:22 01/13/19 18:22 - ECG ECG: Positive for: Interpreted By Me, Viewed By Me ECG Rhythm: Positive for: Sinus Rhythm Rate: 86 O2 Sat by Pulse Oximetry: 100 (RA) Pulse Ox Interpretation: Normal - Radiology X-Ray: Read By Radiologist X-Ray Interpretation: Infiltrates - Progress ED Course And Treament: multiple reevaluations Condition: Improving,but remains with symptoms - Critical Care Total Time (In Min): 45 Medical Decision Making Medical Decision Making: Impression: 38yo female with shortness of breath and cough. rule out pneumonia, chf Plan: --EKG --Labs --CXR --Albuterol Patients lab presents abnormal creatinine level and elevated potassium. Will treat elevated potassium, obtain CXR and antibiotics for anemia. EKG done no obvious peaked t waves. Informed patient of blood test results and patient states she never had any kidney abnormalities - compared to prior labs pt has had basically normal kidney function. pt states had normal bloodwork [address] monteiro and no one ever told her she had abnormal kidney tests. [address] Darell thapa combination window installer who is covering for Dr. Quintana located in [place], [place] who will call back. Patient will be admitted for acute renal failure and is urinating freely. [address] Lozoya who wants to call Dr. Heard renal for consult Dr Heard pagecasie twice, no response. consult placed in computer 1929 Nitroglycerine 0.4mg Lasix 20mg given some minial lower extremity edema and shortness of breath and elevated potassium will treat for chf with nitro and lasix. 1935 Patient wants to sign out AMA 1947 Patient agrees to stay now after i spoke to her and informed her of the impor tance of staying and how elevated potassium can cause cardiac arrest. she undertood and finally agreed to stay. 1957 Dr. Tellez called back, wants to order another Lasix 20mg and he will see patient tomorrow morning Dr. Lozoya is aware of the patient status. pt is admitted to telemetry for fluid overload also covered pt for possible penumonia with antibiotics as well. pt updated and aware of plan for admission, and agreeable . Scribe Attestation: Documented by Len Lancaster training under Karen Burton acting as a scribe for Jefferson Leroy MD. Provider Attestation: All medical record entries made by the Scribe were at my direction and personally dictated by me. I have reviewed the chart and agree that the record accurately reflects my personal performance of the history, physical exam, medical decision making, and the department course for this patient. I have also personally directed, reviewed, and agree with the discharge instructions and disposition. Disposition - Clinical Impression Clinical Impression: Acute renal failure, Pneumonia, Left against medical advice - Patient ED Disposition Is Patient to be Admitted: Yes Counseled Patient/Family Regarding: Studies Performed, Diagnosis - Disposition Disposition Time: 19:00 Condition: GUARDED Additional Instructions: follow up with your primary doctor as soon as possible return to the ED with any worsening or concerning symptoms or if you want to continue workup Prescriptions: Amoxicillin/Clavulanate [Augmentin 875 MG-125 MG] 1 tab PO BID #20 tab Instructions: Pneumonia in Adults, Kidney Failure, Leaving Against Medical Advice Forms: [employer] (E[place]ian)
[2019-01-13] MEDS ORDERED: Albuterol 0.083% Inhal Sol (2.5 mg/3 mL) UD ONE (18:02)
[2019-01-13 18:27] LABS: BASO # 0.1 K/uL (0.0-0.2); BASO % 1.9 % (0.0-2.0); EOS # 0.2 K/uL (0.0-0.7); EOS % 2.7 % (0.0-4.0); HEMOGLOBIN 8.7 g/dL (12.0-16.0); LYMPH # 1.5 K/uL (1.0-4.3); LYMPH % 22.5 % (20.0-40.0); MEAN CELL VOLUME 84.3 fl (81.0-99.0); MEAN CORPUSCULAR HEMOGLOBIN 27.2 pg (27.0-31.0); MEAN CORPUSCULAR HGB CONC 32.3 g/dL (33.0-37.0); MEAN PLATELET VOLUME 7.9 fl (7.2-11.7); MONO # 0.4 K/uL (0.0-0.8); MONO % 6.6 % (0.0-10.0); NEUT # 4.3 K/uL (1.8-7.0); NEUT % 66.3 % (50.0-75.0); RBC 3.21 Mil/uL (3.80-5.20); RED CELL DISTRIBUTION WIDTH 18.1 % (11.5-14.5); WHITE BLOOD COUNT 6.5 K/uL (4.8-10.8)
[2019-01-13 18:42] LABS: ALB/GLOB RATIO 0.9 (1.0-2.1); ALBUMIN 3.4 g/dL (3.5-5.0); CALCIUM 8.9 mg/dL (8.4-10.2)
--- NOTE | 2019-01-13 18:46 | RAD ---
HISTORY: sob COMPARISON: Chest x-ray performed 01/02/17 TECHNIQUE: Chest PA and lateral, 2 views FINDINGS: Examination limited by habitus and hypoinflation. LUNGS: Bibasilar patchy bilateral consolidative changes consistent with pneumonia. Please note that chest x-ray has limited sensitivity for the detection of pulmonary masses. PLEURA: No significant pleural effusion identified. No definite pneumothorax . CARDIOVASCULAR: Partially obscured cardiac silhouette. No atherosclerotic calcification present. OSSEOUS STRUCTURES: No acute osseous abnormality identified. VISUALIZED UPPER ABDOMEN: Unremarkable. OTHER FINDINGS: None. IMPRESSION: Hypoinflation. Bibasilar patchy bilateral consolidative changes consistent with pneumonia.
[2019-01-13] MEDS ORDERED: Dextrose 50% SYRINGE Inj (50 ml) IVP ONE (18:48)
[2019-01-13] MEDS ORDERED: Insulin Regular 100 units/ml SC STA (18:48)
[2019-01-13] MEDS ORDERED: Azithromycin 500 MG in Sodium Chloride 0.9% 250 ML IVPB STA (18:50)
[2019-01-13] MEDS ORDERED: cefTRIAXone (Rocephin) 1 gm Inj ONE (19:07)
[2019-01-13] MEDS ORDERED: Dextrose 50% SYRINGE Inj (50 ml) ONE (19:08)
[2019-01-13] MEDS ORDERED: Insulin Regular 100 units/ml ONE (19:11)
[2019-01-13] MEDS ORDERED: Azithromycin 500 MG IV IVPB ONE (21:02)
[2019-01-13 21:57] VITALS: BP 141/96; RESP 19
--- NOTE | 2019-01-14 09:42 | CARD ---
APPROVED REPORT Date of service: 01/13/2019 EKG Measurement Heart [id number] <Conclusion> Normal sinus rhythm Cannot rule out small or absent R waves V1-V3, may be due to lead placement or possible septal infarct age undetermined. Non specific T-wave changes Abnormal ECG
[2019-01-16 16:54] VITALS: PULSE 86
== END 2019-01-13 23:25 | disposition left against medical advice (07) ==
LOC: H.ER 16:43 → UNDOADMIN 19:04 → H.ERHOLD 19:04 → UNDODISIN 23:25
DX: N17.9 Acute kidney failure, unspecified (principal); J18.9 Pneumonia, unspecified organism; E11.9 Type 2 diabetes mellitus without complications; Z79.4 Long term (current) use of insulin; J44.0 Chronic obstructive pulmonary disease with (acute) lower respiratory infection; E03.9 Hypothyroidism, unspecified; I11.0 Hypertensive heart disease with heart failure
CPT/HCPCS: 71046; 80053; 81025; 85025; 87040; 93005; 94640; 96365; 96375; 99285; J0456; J0696; J1940; J7050